=== PATIENT | male | born 1960 | race Caucasian/White ===

== ENCOUNTER 2019-12-05 17:34 | Outpatient (REF) | payer MEDICARE, MEDICAID, SELFPAY ==
[2019-12-05 22:29] LABS: Abs Immature Grans 0.03 k/cumm (0.0-0.09); Absolute Basophil Count 0.05 k/cumm (0.0-0.2); Absolute Eosinophil Count 0.33 k/cumm (0.0-0.7); Absolute Lymphocyte Count 2.51 k/cumm (1.2-3.4); Absolute Monocyte Count 0.67 k/cumm (0.11-0.7); Absolute Neutrophil Count 3.52 k/cumm (1.2-6.7); Basophils % 0.7; Eosinophils % 4.6; HGB 15.1 g/dL (13.5-17.5); Immature Grans % 0.4 %; Lymphocytes % 35.3; Mean Corp. HGB Concentration 32.8 g/dL (32.0-36.0); Mean Corpuscular Volume 85.2 fL (80-95); Mean Platelet Volume 11.2 fL (8.0-11.0); Monocytes % 9.4; Neutrophils % 49.6; Platelet Count 256 x1000/uL (130-400); RBC Distribution Width 16.1 % (11.8-14.1); White Blood Cell Count 7.11 k/cumm (4.4-10.8)
[2019-12-05 22:58] LABS: AST 6 U/L (15-37); Albumin 3.6 g/dL (3.4-5.0); Alkaline Phosphatase 69 U/L (46-116); Anion Gap 9.3 mmol/L (3-11); BUN 11 mg/dL (7-18); Bilirubin, Total 0.4 mg/dL (0.2-1.0); CO2 26.7 mmol/L (21.0-32.0); CREATININE 0.52 mg/dL (0.70-1.30); Calcium 9.3 mg/dL (8.5-10.1); Calculated LDL 64 mg/dL; Chloride 101 mmol/L (98-107); Cholesterol 122 mg/dL (<200); Glucose 112 mg/dL (74-106); HDL Cholesterol 24 mg/dL (40-60); Potassium 4.3 mmol/L (3.5-5.1); Sodium 137 mmol/L (136-145); Total Protein 7.5 g/dL (6.4-8.2); Triglyceride 171 mg/dL (<150); Vitamin B12 463 pg/mL (193-986)
[2019-12-05 23:00] LABS: ALT < 6 U/L (16-63)
[2019-12-05 23:28] LABS: Hemoglobin A1C 5.9 % (3.8-5.6)
== END 2019-12-05 17:54 ==
LOC: NCHCN 17:34
PROVIDERS: PCP Nurse Practitioner Family; Visit Provider Nurse Practitioner Family
DX: E11.9 Type 2 diabetes mellitus without complications (principal); F41.9 Anxiety disorder, unspecified; K75.81 Nonalcoholic steatohepatitis (NASH); K80.80 Other cholelithiasis without obstruction; E66.9 Obesity, unspecified; G80.0 Spastic quadriplegic cerebral palsy; J45.20 Mild intermittent asthma, uncomplicated; G47.33 Obstructive sleep apnea (adult) (pediatric)
CPT/HCPCS: 80053; 80061; 82607; 83036; 83735; 85025

== ENCOUNTER 2019-12-16 01:29 | Outpatient (CLI) | payer MEDICARE, MEDICAID, SELFPAY ==
--- NOTE | 2019-12-16 09:18 | DI.US_ITS ---
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 COMPARISON: No exams were available for comparison FINDINGS: The liver is normal in size and echogenicity. No focal liver lesions or biliary dilatation is seen. Gallbladder is unremarkable, without evidence of stones or wall thickening. Spleen is normal in siz e. The aorta is normal in diameter where visualized. The tail of the pancreas is obscured by bowel g as. The inferior pole of the right kidney and majority of the left kidney was obscured by bowel gas. There is no evidence of hydronephrosis. There are 3 stones visible at the upper pole of the right kidney measuring 7 and 10 millimeters in size. IMPRESSION: Limited exam due to bowel gas. Normal appearing liver, spleen and gallbladder. Right nephrolithia sis. The left kidney was not well seen.
== END 2019-12-16 01:49 ==
PROVIDERS: PCP Nurse Practitioner Family; Visit Provider Nurse Practitioner Family
DX: K75.81 Nonalcoholic steatohepatitis (NASH) (principal); N20.0 Calculus of kidney
CPT/HCPCS: 76700

== ENCOUNTER → 2020-01-23 08:57 | Outpatient (BNVA) | payer MEDICARE, MEDICAID, SELFPAY | PROVIDERS: PCP Nurse Practitioner Family; Referring Provider Nurse Practitioner Family; Visit Provider Psychiatry & Neurology Neurology | DX: G80.0 Spastic quadriplegic cerebral palsy (principal); K59.09 Other constipation; R32 Unspecified urinary incontinence; N32.81 Overactive bladder | CPT/HCPCS: 99204 ==

== ENCOUNTER → 2020-01-29 08:24 | Outpatient (BNVA) | payer MEDICARE, MEDICAID, SELFPAY | PROVIDERS: PCP Nurse Practitioner Family; Referring Provider Nurse Practitioner Family; Visit Provider Nurse Practitioner Gerontology | DX: R32 Unspecified urinary incontinence (principal); N32.81 Overactive bladder; E11.9 Type 2 diabetes mellitus without complications | CPT/HCPCS: 99204; 99215 ==

== ENCOUNTER → 2020-04-09 11:50 | Outpatient (BNVA) | payer MEDICARE, MEDICAID, SELFPAY | PROVIDERS: PCP Nurse Practitioner Family; Referring Provider Nurse Practitioner Family; Visit Provider Nurse Practitioner Gerontology | DX: N32.81 Overactive bladder (principal); N32.0 Bladder-neck obstruction | CPT/HCPCS: 99213; 99443 ==

== ENCOUNTER → 2020-07-07 11:14 | Outpatient (BNVA) | payer MEDICARE, MEDICAID, SELFPAY | PROVIDERS: PCP Nurse Practitioner Family; Referring Provider Nurse Practitioner Family; Visit Provider Nurse Practitioner Gerontology | DX: N32.0 Bladder-neck obstruction (principal); N32.81 Overactive bladder; E11.9 Type 2 diabetes mellitus without complications | CPT/HCPCS: 99213 ==

== ENCOUNTER 2020-09-02 17:10 | Outpatient (REF) | payer MEDICARE, MEDICAID, SELFPAY ==
[2020-09-05 20:29] LABS: Patient Race White; SARS-CoV-2 RNA Undetected (Undetected); SARS-CoV-2 Specimen Source Nasopharynx
== END 2020-09-02 17:30 ==
LOC: NCHCN 17:10
PROVIDERS: PCP Nurse Practitioner Family; Visit Provider Nurse Practitioner Family
DX: R05 Cough (principal)
CPT/HCPCS: U0003

== ENCOUNTER 2020-09-22 12:31 | Outpatient (CLI) | payer MEDICARE, MEDICAID, SELFPAY ==
--- NOTE | 2020-09-22 | DI.RAD_ITS ---
EXAM: XR CHEST 2V PA LATERAL CLINICAL HISTORY: COUGH, ? RECURRENT OR RESIDUAL PNEUMONIA TECHNIQUE: 2D digital imaging was performed. COMPARISON: CR,XR XR CHEST 2V PA LATERAL from 09/02/2020 FINDINGS: MEDIASTINUM: Normal. HEART: Normal. PULMONARY VASCULATURE: Normal. LUNGS: Right basilar atelectasis. No focal consolidating infiltrate. PLEURAL SPACE: No pleural effusion or pneumothorax. BONE:Within normal limits for the patient's age. OTHER FINDINGS:There is poor inspiration. IMPRESSION: Right basilar atelectasis. DATA REPOSITORY: RADIATION DOSE DELIVERED:
== END 2020-09-22 12:51 ==
PROVIDERS: PCP Nurse Practitioner Family; Visit Provider Nurse Practitioner Family
DX: J98.11 Atelectasis (principal)
CPT/HCPCS: 71046

== ENCOUNTER 2020-12-14 14:36 | Outpatient (REF) | payer MEDICARE, MEDICAID, SELFPAY ==
[2020-12-14 20:42] LABS: Abs Immature Grans 0.06 10^3/uL (0.0-0.06); Absolute Basophil Count 0.08 10^3/uL (0.0-0.2); Absolute Eosinophil Count 0.58 10^3/uL (0.0-0.7); Absolute Lymphocyte Count 2.61 10^3/uL (1.2-3.4); Absolute Monocyte Count 0.84 10^3/uL (0.1-0.8); Absolute Neutrophil Count 4.69 10^3/uL (1.2-6.7); Basophils % 0.9; Eosinophils % 6.5; HCT 44.9 % (40.0-50.0); HGB 14.8 g/dL (13.5-17.5); Immature Grans % 0.7; Lymphocytes % 29.5; MCH 27.8 pg (27.0-33.0); MCV 84.2 fL (80-95); MPV 10.4 fL (8.0-11.0); Monocytes % 9.5; Neutrophils % 52.9; Nucleated RBC 0 %; Platelet Count 262 10^3/uL (130-400); RBC 5.33 10^6/uL (4.36-5.78); RDW 15.5 % (11.8-14.1); RDW-SD 47.7 fL; WBC 8.86 10^3/uL (4.4-10.8)
[2020-12-14 21:20] LABS: ALT 23 U/L (16-63); AST 12 U/L (15-37); Albumin 3.6 g/dL (3.4-5.0); Alkaline Phosphatase 72 U/L (46-116); Anion Gap 8.3 mmol/L (3-11); BUN 14 mg/dL (7-18); Bilirubin, Total 0.4 mg/dL (0.2-1.0); CO2 25.7 mmol/L (21.0-32.0); CREATININE 0.55 mg/dL (0.70-1.30); Calcium 9.3 mg/dL (8.5-10.1); Chloride 101 mmol/L (98-107); Glucose 105 mg/dL (74-106); Potassium 4.2 mmol/L (3.5-5.1); Sodium 135 mmol/L (136-145); Total Protein 7.6 g/dL (6.4-8.2); Vitamin B12 439 pg/mL (193-986)
[2020-12-14 21:45] LABS: COMMENT (LAB VIEW ONLY) 50.23 mg/dL
[2020-12-14 21:46] LABS: Microalb ug/mg Crea 138.4 ug/mg Cr
[2020-12-15 10:17] LABS: Calculated LDL 65 mg/dL (<100); Cholesterol 137 mg/dL (<200); HDL Cholesterol 27 mg/dL (40-60); Triglyceride 228 mg/dL (<150)
== END 2020-12-14 14:56 ==
LOC: NCHCN 14:36
PROVIDERS: PCP Nurse Practitioner Family; Visit Provider Nurse Practitioner Family
DX: E11.9 Type 2 diabetes mellitus without complications (principal); R31.21 Asymptomatic microscopic hematuria; R13.10 Dysphagia, unspecified; G47.33 Obstructive sleep apnea (adult) (pediatric); G80.0 Spastic quadriplegic cerebral palsy; E66.9 Obesity, unspecified; Z87.01 Personal history of pneumonia (recurrent)
CPT/HCPCS: 80053; 80061; 82043; 82570; 82607; 83735; 85025; 87086

== ENCOUNTER 2020-12-18 15:28 | Outpatient (REF) | payer MEDICARE, MEDICAID, SELFPAY | END 2020-12-18 15:48 | LOC: NCHCN 15:28 | PROVIDERS: PCP Nurse Practitioner Family; Visit Provider Nurse Practitioner Family | DX: N39.0 Urinary tract infection, site not specified (principal); R32 Unspecified urinary incontinence; N32.81 Overactive bladder | CPT/HCPCS: 87077; 87086; 87186 ==

== ENCOUNTER 2020-12-25 19:10 | Outpatient (REF) | payer MEDICARE, MEDICAID, SELFPAY ==
[2020-12-25 20:42] LABS: Bilirubin Negative (Negative); Blood Small (Negative); Clarity Cloudy (Clear); Glucose Negative (Negative); Ketones Negative (Negative); Leukocyte Esterase Large (Negative); Nitrite Positive (Negative)
[2020-12-25 20:50] LABS: Bacteria Moderate HPF (Negative); C & S Indicated? C&S Done As Ordered; WBC >50 HPF (0-5)
== END 2020-12-25 19:11 | disposition home or self-care (01) ==
LOC: NCHCN 19:10
PROVIDERS: PCP Nurse Practitioner Family; Visit Provider Nurse Practitioner Family
DX: N39.0 Urinary tract infection, site not specified (principal)
CPT/HCPCS: 87077; 81003; 81015; 87086; 87186

== ENCOUNTER → 2020-12-30 10:31 | Outpatient (BNVA) | payer MEDICARE, MEDICAID, SELFPAY | PROVIDERS: PCP Nurse Practitioner Family; Referring Provider Nurse Practitioner Family; Visit Provider Nurse Practitioner Gerontology | DX: N20.0 Calculus of kidney (principal); G80.0 Spastic quadriplegic cerebral palsy; B96.1 Klebsiella pneumoniae [K. pneumoniae] as the cause of diseases classified elsewhere; R31.9 Hematuria, unspecified | CPT/HCPCS: 99215 ==

== ENCOUNTER 2021-01-04 01:41 | Outpatient (CLI) | payer MEDICARE, MEDICAID, SELFPAY ==
[2021-01-05 11:52] LABS: COVID-19 RT-PCR UVMMC Result Negative (Negative)
== END 2021-01-04 01:42 | disposition home or self-care (01) ==
LOC: LBO 01:41
PROVIDERS: PCP Nurse Practitioner Family; Visit Provider Family Medicine
DX: Z20.828 Contact with and (suspected) exposure to other viral communicable diseases (principal); Z01.818 Encounter for other preprocedural examination
CPT/HCPCS: U0003; U0005

== ENCOUNTER 2021-01-07 01:13 | Outpatient (CLI) | payer MEDICARE, MEDICAID, SELFPAY ==
--- NOTE | 2021-01-07 | DI.US_ITS ---
EXAM: US ABDOMEN CLINICAL HISTORY: NON ALCOHOLIC STEATOHEPATITIS, K75.81 TECHNIQUE: Ultrasound of complete upper abdomen performed using standard protocol. COMPARISON: US US ABDOMEN from 12/16/2019 FINDINGS: Study is somewhat limited due to patient's less than adequate ability to hold his breath and inabilit y to move-change positions adequately. There is no ascites evident. LIVER: There are no hepatic lesions evident nor obvious dilatation of intrahepatic ducts. GALLBLADDER/BILIARY: There are no gallstones. No gallbladder wall edema nor pericholecystic fluid. The common hepatic duct isnot dilated, measuring 3-4mm at the level of lynda hepatis. PANCREAS: There is no evidence of pancreatic mass nor dilatation of the pancreatic duct. SPLEEN: The spleen is not enlarged and there are no intrasplenic lesions evident. KIDNEYS:Kidneys exhibit normal size with no evidence of solid mass, calculus, nor hydronephrosis. No cortical cysts evident. ABDOMINAL AORTA: There is no evidence of abdominal aortic aneurysm. IVC: Normal diameter where visualized. IMPRESSION: 1. No evidence of cholelithiasis nor dilatation of the biliary tree. 2. No other significant ultrasound findings in the upper abdomen. 3. Previously described calculi in right kidney seen on the ultrasound of November 2019 are less evid ent on present images. There is no hydronephrosis on either side nor thinning of the cortical mantle . DATA REPOSITORY:
== END 2021-01-07 01:14 ==
LOC: DI 01:13
PROVIDERS: PCP Nurse Practitioner Family; Visit Provider Nurse Practitioner Family
DX: K75.81 Nonalcoholic steatohepatitis (NASH) (principal)
CPT/HCPCS: 76700

== ENCOUNTER → 2021-01-21 10:37 | Outpatient (BNVA) | payer MEDICARE, MEDICAID, SELFPAY | PROVIDERS: PCP Nurse Practitioner Family; Referring Provider Nurse Practitioner Family; Visit Provider Psychiatry & Neurology Neurology | DX: G80.0 Spastic quadriplegic cerebral palsy (principal); K59.09 Other constipation; R32 Unspecified urinary incontinence; N32.81 Overactive bladder; E11.9 Type 2 diabetes mellitus without complications | CPT/HCPCS: 99214 ==

== ENCOUNTER 2021-02-04 01:50 | Outpatient (CLI) | payer MEDICARE, MEDICAID, SELFPAY ==
[2021-02-04] MEDS: Omnipaque 350 MG/ML 100 ML BTL IJ (10:16)
[2021-02-04] MEDS: Normal Saline Flush 10 ML SYR IVP (10:17)
[2021-02-04] MEDS: Normal Saline - Diluent 50 ML VIAL IV (10:17)
--- NOTE | 2021-02-04 10:20 | DI.CT_ITS ---
EXAM: CT ABDOMEN PELVIS WO/W CLINICAL HISTORY: hx of stones,NEPHROLITHIASIS,N20.0. TECHNIQUE: Imaging Protocol: Axial computed tomography images with coronal and sagittal reformatted images were created and reviewed CONTRAST MATERIAL: Intravenous: Omnipaque 100cc Oral: None COMPARISON: No exams were available for comparison FINDINGS: VISUALIZED LUNG BASES: Moderate-sized right pleural effusion as well as some atelectasis and infiltra te in the right lung base. ABDOMEN: There is no ascites. LIVER: There are no obvious focal hepatic lesions evident . GALLBLADDER/BILIARY: There are layering gallstones or milk of calcium in the gallbladder lumen. No e vidence of acute cholecystitis. CBD is not dilated. PANCREAS: No evidence of pancreatic mass nor dilatation of the pancreatic duct. SPLEEN: Spleen is not enlarged. No obvious intrasplenic lesions. Splenic and portal veins are paten t. ADRENALS: There are no significant adrenal masses. KIDNEYS:Left kidney unremarkable. There is a fractured staghorn calculus in the right kidney which e xtends down into the renal pelvis. There is no associated hydronephrosis. The right ureter is not d ilated. There are no calculi in the lower right ureter nor in the urinary bladder.. ABDOMINAL AORTA: Abdominal aorta is not enlarged. LYMPH NODES:There is no retroperitineal nor paraaortic adenopathy. ABDOMINAL WALL/GI: There is a fat containing anterior abdominal hernia. No bowel obstruction. PELVIS: GI: No evidence of appendicitis.No evidence of sigmoid diverticulitis.Abundant fecal material in the colon. LYMPH NODES: There is no intrapelvic nor inguinal adenopathy. REPRODUCTIVE: Prostate size upper normal. URINARY BLADDER: Uniform thickening bladder wall without an obvious mass nor calculi nor diverticuli. OSSEOUS: Chronic pelvic and hip deformities in this contracted patient. There is also a displaced fr acture of the left femur noted on the scanogram No evidence of significant decubitus ulcer. No osteomyelitis evident. IMPRESSION: 1. There is a nonobstructive fractured staghorn calculus in the right kidney. No other significant r enal findings. No hydronephrosis nor hydroureter nor calculi in the urinary bladder. Opposite-left kidney appears unremarkable 2. Cholelithiasis or layering milk calcium in the gallbladder lumen. No evidence of acute cholecysti tis nor dilatation of the biliary tree. 3. Fat containing anterior abdominal wall umbilical hernia. This does not contain bowel loops. Ther e is no bowel obstruction. 4. Chronic pelvic and hip deformities and degenerative changes. There is also a fracture of the left femur noted on the scanogram. RADIATION DOSE DELIVERED: 4,096.03mGy.cm Total DLP DATA REPOSITORY: All CT scans at this facility are submitted to the National Radiology Data Registry (NRDR) Dose Index Registry (DIR) with the [employer] (ACR). RADIATION OPTIMIZATION: All CT scans at this facility use at least one of these dose optimization te chniques: automated exposure control; mA and/or kV adjustment per patient size (includes targeted exa ms where dose is matched to clinical indication); or iterative reconstruction.
== END 2021-02-04 02:10 ==
PROVIDERS: PCP Nurse Practitioner Family; Visit Provider Nurse Practitioner Gerontology
DX: N20.0 Calculus of kidney (principal); K42.9 Umbilical hernia without obstruction or gangrene; M95.5 Acquired deformity of pelvis
CPT/HCPCS: 74178; J3490

== ENCOUNTER → 2021-02-10 09:56 | Outpatient (BNVA) | payer MEDICARE, MEDICAID, SELFPAY | PROVIDERS: PCP Nurse Practitioner Family; Referring Provider Nurse Practitioner Family; Visit Provider Nurse Practitioner Gerontology | DX: N20.0 Calculus of kidney (principal) | CPT/HCPCS: 99215 ==

== ENCOUNTER 2021-03-26 09:00 | Outpatient (REF) | payer MEDICARE, MEDICAID, SELFPAY ==
[2021-03-26 13:06] LABS: Abs Immature Grans 0.04 10^3/uL (0.0-0.06); Absolute Basophil Count 0.08 10^3/uL (0.0-0.2); Absolute Eosinophil Count 0.26 10^3/uL (0.0-0.7); Absolute Lymphocyte Count 2.43 10^3/uL (1.2-3.4); Absolute Monocyte Count 0.54 10^3/uL (0.1-0.8); Absolute Neutrophil Count 4.15 10^3/uL (1.2-6.7); Basophils % 1.1; Eosinophils % 3.5; HCT 46.2 % (40.0-50.0); Immature Grans % 0.5; Lymphocytes % 32.4; MCH 26.6 pg (27.0-33.0); MCHC 32.5 % (32.0-36.0); MCV 81.9 fL (80-95); MPV 10.5 fL (8.0-11.0); Monocytes % 7.2; Neutrophils % 55.3; Nucleated RBC 0 %; Platelet Count 300 10^3/uL (130-400); RBC 5.64 10^6/uL (4.36-5.78); RDW 15.3 % (11.8-14.1); RDW-SD 45.9 fL
[2021-03-26 15:12] LABS: ALT 23 U/L (16-63); AST 13 U/L (15-37); Albumin 3.7 g/dL (3.4-5.0); Alkaline Phosphatase 72 U/L (46-116); Anion Gap 11.7 mmol/L (3-11); BUN 20 mg/dL (7-18); Bilirubin, Total 0.3 mg/dL (0.2-1.0); CO2 24.3 mmol/L (21.0-32.0); CREATININE 0.6 mg/dL (0.70-1.30); Calcium 9.3 mg/dL (8.5-10.1); Chloride 101 mmol/L (98-107); Glucose 172 mg/dL (74-106); Potassium 4.4 mmol/L (3.5-5.1); Sodium 137 mmol/L (136-145); Total Protein 8.1 g/dL (6.4-8.2)
== END 2021-03-26 10:41 ==
LOC: NCHCN 09:00
PROVIDERS: PCP Nurse Practitioner Family; Visit Provider Nurse Practitioner Family
DX: R31.21 Asymptomatic microscopic hematuria (principal); R32 Unspecified urinary incontinence; N20.0 Calculus of kidney
CPT/HCPCS: 80053; 87077; 85025; 87086; 87186

== ENCOUNTER 2021-03-30 02:58 | Outpatient (CLI) | payer MEDICARE, MEDICAID, SELFPAY ==
[2021-03-30 10:19] LABS: Source Nasal/Nares
[2021-03-30 16:16] LABS: COVID-19 PCR Negative (Negative)
== END 2021-03-30 02:59 | disposition home or self-care (01) ==
LOC: LBO 02:58
PROVIDERS: PCP Nurse Practitioner Family; Visit Provider Urology
DX: Z20.822 Contact with and (suspected) exposure to COVID-19 (principal); Z01.818 Encounter for other preprocedural examination
CPT/HCPCS: 87635

== ENCOUNTER 2021-04-09 20:40 | Inpatient (IN) | payer MEDICARE, MEDICAID, SELFPAY ==
[2021-04-09] VITALS (16 sets, daily range): BP systolic 133–137; BP diastolic 72–83; PULSE 80–89; RESP 22–39; TEMP 37.2; O2SAT 92–96
[2021-04-09] MEDS: EPINEPHrine 0.3 MG KIT IM (20:59)
[2021-04-09] MEDS: diphenhydrAMINE 50 MG/ML VIAL IM (20:59)
--- NOTE | 2021-04-09 21:00 | RT.EKG_ITS ---
APPROVED REPORT Exam: Resting ECG Reason for Exam: SOB Patient Location: E HR:85 bpm ECG Measurements Heart Rate 85 AXIS HI 195 P 12 QRSd 98 QRS -37 QT 387 T -7 QTc 460 Conclusion Sinus rhythm...normal P axis, V-rate 60- 99 Inferior infarct, old...Q >35mS, II III aVF Q >30mS in V2-V5
[2021-04-09] MEDS: methylPREDNISolone SUCC 125 MG VIAL IVP (21:30)
[2021-04-09 21:36] LABS: Lactate 1.2 mmol/L (0.6-1.4)
[2021-04-09 21:39] LABS: Abs Immature Grans 0.59 10^3/uL (0.0-0.06); Absolute Basophil Count 0.05 10^3/uL (0.0-0.2); Absolute Eosinophil Count 0.36 10^3/uL (0.0-0.7); Basophils % 0.3; Eosinophils % 2.2; HCT 39.5 % (40.0-50.0); HGB 13.2 g/dL (13.5-17.5); Immature Grans % 3.6; Lymphocytes % 17.9; MCH 26.9 pg (27.0-33.0); MCHC 33.4 % (32.0-36.0); MCV 80.4 fL (80-95); MPV 9.4 fL (8.0-11.0); Monocytes % 7.7; Neutrophils % 68.3; Nucleated RBC 0 %; Platelet Count 296 10^3/uL (130-400); RBC 4.91 10^6/uL (4.36-5.78); RDW 15.5 % (11.8-14.1); RDW-SD 44.9 fL
[2021-04-09 21:51] LABS: Absolute Lymphocyte Count 2.92 10^3/uL (1.2-3.4); Absolute Monocyte Count 1.26 10^3/uL (0.1-0.8); Absolute Neutrophil Count 11.13 10^3/uL (1.2-6.7)
[2021-04-09 21:52] LABS: ALT 33 U/L (16-63); AST 20 U/L (15-37); Alkaline Phosphatase 95 U/L (46-116); Anion Gap 11.5 mmol/L (3-11); BUN 12 mg/dL (7-18); Bilirubin, Total 0.6 mg/dL (0.2-1.0); CO2 24.5 mmol/L (21.0-32.0); CREATININE 0.7 mg/dL (0.70-1.30); Calcium 8.9 mg/dL (8.5-10.1); Chloride 97 mmol/L (98-107); Diff Comment Diff Reviewed; Glucose 185 mg/dL (74-106); Potassium 4.3 mmol/L (3.5-5.1); Sodium 133 mmol/L (136-145); Total Protein 8.2 g/dL (6.4-8.2)
[2021-04-09 21:53] LABS: Microcytosis 1+
[2021-04-09 22:07] LABS: Source Nasal/Nares
--- NOTE | 2021-04-09 22:31 | DI.RAD_ITS ---
Exam(s) XR PORTABLE CHEST AP EXAM: XR PORTABLE CHEST AP CLINICAL HISTORY: pui cough TECHNIQUE: COMPARISON: CR XR CHEST 2V PA LATERAL from 09/22/2020 FINDINGS: There is a poor inspiration. Heart may be mildly enlarged. Lungs are grossly clear and well expande d. No evidence of acute consolidation. No pleural effusion seen on this frontal film. IMPRESSION: Negative examination of the chest. Poor inspiration. RADIATION DOSE DELIVERED: Total DLP
[2021-04-09] MEDS: Albuterol 2.5 MG/3 ML INH SOLN VIAL UPD (23:00)
--- NOTE | 2021-04-09 23:00 | W.ED.GENAD ---
Discharge Plan Disposition Patient Disposition: [facility] INPATIENT Condition: Serious Discharge Details Clinical Impression: Fever, Allergic reaction caused by a drug Primary Care Provider: Starr Llamas ED Provider: Lucas Randall [place] Meds and New Rx's Prescriptions: No Action carbamide peroxide [Debrox] 6.5 % drops 5 drp otic (ear) DAILY PRNRF: 0 [employer] Thick-It Powder PO PRNRF: 0 fluticasone propionate 50 mcg/actuation spray,suspension 2 spray intranasal DAILY RF: 0 Toviaz 4 mg tablet extended release 24 hr 4 mg PO DAILY RF: 0 polyethylene glycol 3350 17 gram/dose powder 17 gm PO DAILY RF: 0 aspirin [Adult Low Dose Aspirin] 81 mg tablet,delayed release (DR/EC) 81 mg PO DAILY RF: 0 Ocuvite Adult 50 Plus 250-5-1 mg capsule 1 cap PO DAILY RF: 0 cholecalciferol (vitamin D3) 25 mcg (1,000 unit) tablet 25 mcg PO DAILY RF: 0 omeprazole 20 mg capsule,delayed release(DR/EC) 20 mg PO DAILY RF: 0 tamsulosin 0.4 mg capsule 0.4 mg PO BID RF: 0 metformin 500 mg tablet extended release 24 hr 500 mg PO DAILY RF: 0 Medical Decision Making <Ángel Jones MD - Last Filed: 04/10/21 00:44> 2100 --patient seen immediately on arrival. 61-year-old male with multiple medical problems including history of cerebral palsy, spastic quadriplegia, kidney stones status post recent stent removal earlier today, developed rash, nausea and vomiting after a single dose of ciprofloxacin that was given prestent removal early this afternoon. Patient has full body urticarial rash and is tachypneic with wheezing. I am concerned that he has anaphylactic reaction to the fluoroquinolone. Epinephrine 0.3 mg IM and Benadryl 50 mg IM was administered while IV access was being obtained. Solu-Medrol 125 mg was administered IV. 2310 -- Upon reassessment, rash had significantly improved and on subsequent reassessment resolved. He does continue to have tachypnea. I worry about potential aspiration given vomiting episode earlier. I will give a albuterol neb and plan to reassess. Chest x-ray was reviewed and interpreted by me: Question right perihilar opacity. Awaiting radiology interpretation. --Chest x-ray interpreted by radiology: Hypoventilatory changes, perihilar vascular crowding and a diffuse increase in pulmonary parenchymal density. No focal consolidation or pulmonary edema. Plan will be to proceed to CT of the chest abdomen pelvis to assess for source of fever including postoperative complication versus aspiration pneumonia not appreciated on chest x-ray. Lab Data Lab results reviewed: Yes I reviewed the patient's lab results. Labs: 04/10/21 00:10 Blood Blood Culture - Pending 04/10/21 00:10 Blood Blood Culture - Pending Laboratory Tests Range/Units 04/09/21 04/09/21 04/09/21 21:30 21:30 21:30 WBC (4.4-10.8) 10^3/uL 16.30 H RBC (4.36-5.78) 10^6/uL 4.91 Hgb (13.5-17.5) g/dL 13.2 L Hct (40.0-50.0) % 39.5 L MCV (80-95) fL 80.4 MCH (27.0-33.0) pg 26.9 L MCHC (32.0-36.0) % 33.4 RDW (11.8-14.1) % 15.5 H Plt Count (130-400) 10^3/uL 296 MPV (8.0-11.0) fL 9.4 Immature Gran % 3.6 Neutrophils % 68.3 Lymphocytes % 17.9 Monocytes % 7.7 Eosinophils % 2.2 Basophils % 0.3 Nucleated RBC % % 0 Absolute Neutrophils (1.2-6.7) 10^3/uL 11.13 H Absolute Lymphocytes (1.2-3.4) 10^3/uL 2.92 Absolute Monocytes (0.1-0.8) 10^3/uL 1.26 H Absolute Eosinophils (0.0-0.7) 10^3/uL 0.36 Absolute Basophils (0.0-0.2) 10^3/uL 0.05 RBC Morphology See below Microcytosis 1+ VBG Lactate (0.6-1.4) mmol/L 1.2 Sodium (136-145) mmol/L 133 L Potassium (3.5-5.1) mmol/L 4.3 Chloride (98-107) mmol/L 97 L Carbon Dioxide (21.0-32.0) mmol/L 24.5 Anion Gap (3-11) mmol/L 11.5 H BUN (7-18) mg/dL 12 Creatinine (0.70-1.30) mg/dL 0.7 Estimated GFR/1.73 m2 (mL/min/1.73m2) >= 60.00 Glucose (74-106) mg/dL 185 H Calcium (8.5-10.1) mg/dL 8.9 Total Bilirubin (0.2-1.0) mg/dL 0.6 AST (15-37) U/L 20 ALT (16-63) U/L 33 Alkaline Phosphatase (46-116) U/L 95 Total Protein (6.4-8.2) g/dL 8.2 Albumin (3.4-5.0) g/dL 3.0 L COVID-19 Source SARS-CoV-2 (PCR) (Negative) Range/Units 04/09/21 22:04 WBC (4.4-10.8) 10^3/uL RBC (4.36-5.78) 10^6/uL Hgb (13.5-17.5) g/dL Hct (40.0-50.0) % MCV (80-95) fL MCH (27.0-33.0) pg MCHC (32.0-36.0) % RDW (11.8-14.1) % Plt Count (130-400) 10^3/uL MPV (8.0-11.0) fL Immature Gran % Neutrophils % Lymphocytes % Monocytes % Eosinophils % Basophils % Nucleated RBC % % Absolute Neutrophils (1.2-6.7) 10^3/uL Absolute Lymphocytes (1.2-3.4) 10^3/uL Absolute Monocytes (0.1-0.8) 10^3/uL Absolute Eosinophils (0.0-0.7) 10^3/uL Absolute Basophils (0.0-0.2) 10^3/uL RBC Morphology Microcytosis VBG Lactate (0.6-1.4) mmol/L Sodium (136-145) mmol/L Potassium (3.5-5.1) mmol/L Chloride (98-107) mmol/L Carbon Dioxide (21.0-32.0) mmol/L Anion Gap (3-11) mmol/L BUN (7-18) mg/dL Creatinine (0.70-1.30) mg/dL Estimated GFR/1.73 m2 (mL/min/1.73m2) Glucose (74-106) mg/dL Calcium (8.5-10.1) mg/dL Total Bilirubin (0.2-1.0) mg/dL AST (15-37) U/L ALT (16-63) U/L Alkaline Phosphatase (46-116) U/L Total Protein (6.4-8.2) g/dL Albumin (3.4-5.0) g/dL COVID-19 Source Nasal/nares SARS-CoV-2 (PCR) (Negative) Negative <Lucas Randall MD - Last Filed: 04/10/21 02:37> Patient signed out to me pending repeat lactic acid, CT chest/abd/pelvis and obtaining [facility] records. Patient repeat lactic continues to be normal. Vitals are stable. [facility] records indicate patient admitted there on the and had right ureteral stent as well as right nephrostomy tube placed in order to remove staghorn calculus. He did have a couple episodes of fever and hypotension treated with fluids and Meropenem due to previous resistant bacteria on urine culture. ID was involved. By the , the nephrostomy tube and Kovacs were out and patient discharged home without antibiotic and did well. Went back to [facility] today and had stent removed. Receive dose of Cipro preprocedure. Upon returning to [facility] this afternoon, patient developed fever, hives, difficulty breathing. He was brought in by ambulance. Please see Dr. Jones's note for initial management. Patient has been stable since I have taken over care. He has not been febrile. Still occasionally tachypnic and still on [place] oxygen but breathing better. CT scan shows slight consolidation of the right posterior lung base, question atelectesis versus infection. Abd/pelvic CT negative except for post op changes, residual small stones in ureter without obstruction and stranding/edema of right kidney consistent with pyelo. Based on discussion with Dr. Jones at sign out, plan was to admit here overnight if no significant pathology on CT. Case discussed with hospitalist. Will admit to tele overnight and continue to monitor for recurrent allergic symptoms. Probably treat with prednisone for a few days and Benadryl prn. Will also dose with Meropenem after urine culture obtain and have day hospitalist follow up with [facility] urology for recommendations regarding further treatment or not. Patient has customer care representative with him from [employer]. No advance directive on file that they are aware of but there is a guardian. For now admit as full code and will need to clarify with guardian in the morning. Medical Records Medical records reviewed: Yes I reviewed the patient's medical records. Medical records narrative: Reviewed [facility] records for surgery and admission last week Lab Data Lab results reviewed: Yes I reviewed the patient's lab results. Lab results narrative: Elevated WBC but normal lactate x2 HPI <Ángel Jones MD - Last Filed: 04/10/21 00:44> General Mode of arrival: EMS. Date/Time Provider Initiated Documentation: 04/09/21 20:50. Limitations to Documentation: no limitations. Information obtained by: patient and EMS. HPI Narrative: 61-year-old male with history of cerebral palsy with spastic quadriplegia, nephrolithiasis status post recent stent removal performed earlier today, received ciprofloxacin single dose around noon, presents tonight with EMS with fever and difficulty breathing. Per the patient's cable television line technician, he developed rash on his arms bilaterally early this afternoon. Rash progressed and worsened involves full body. Rash is red. He also had nausea and vomited. Check Out Cashier notes that he may have aspirated as he has aspirated in the past. He was then noted to have a fever later this evening. Fever was as high as 104 at home. EMS also did note fever. EMS states that patient developed some cough and was having some difficulty breathing in route. Of note, patient does not have any known allergy to ciprofloxacin. Related Data Home Medications Medication Instructions Recorded Confirmed aspirin 81 mg tablet,delayed 81 mg PO DAILY 12/12/19 02/10/21 release cholecalciferol (vitamin D3) 25 25 mcg PO DAILY 12/12/19 02/10/21 mcg (1,000 unit) tablet omeprazole 20 mg capsule,delayed 20 mg PO DAILY 12/12/19 02/10/21 release polyethylene glycol 3350 17 17 gm PO DAILY 12/12/19 02/10/21 gram/dose oral powder tamsulosin 0.4 mg capsule 0.4 mg PO BID cap 12/12/19 02/10/21 vit C,E,zinc,copper-[id number] 250 1 cap PO DAILY 12/12/19 02/10/21 mg-lutein 5 mg-zeaxanthin 1 mg capsule fesoterodine 4 mg tablet,extended 4 mg PO DAILY 04/09/20 02/10/21 release 24 hr carbamide peroxide 6.5 % ear drops 5 drp OTIC (EAR) DAILY PRN 01/21/21 02/10/21 fluticasone propionate 50 2 spray INTRANASAL DAILY 01/21/21 02/10/21 mcg/actuation nasal spray,suspension metformin 500 mg tablet,extended 500 mg PO DAILY tab 01/21/21 02/10/21 release 24 hr starch (thickening) pwd PO PRN 01/21/21 02/10/21 Allergies Allergy/AdvReac Type Severity Reaction Status Date / Time ciprofloxacin Allergy Severe Wheezing Unverified 04/10/21 00:17 wool Allergy Unverified 01/21/21 10:42 kapok Allergy Uncoded 01/21/21 10:42 General Stated Complaint: Fever URSULA: 2 Review of Systems <Ángel Jones MD - Last Filed: 04/10/21 00:44> All systems reviewed & are unremarkable except as noted in HPI and below Constitutional Constitutional: Reports fever(s) Respiratory Respiratory: Reports cough Gastrointestinal Gastrointestinal: Reports as per HPI and Denies abdominal pain Integumentary/Breasts Skin/Breast: Reports as per HPI PFSH <Ángel Jones MD - Last Filed: 04/10/21 00:44> Medical History Anxiety BPH (benign prostatic hyperplasia) Cholelithiasis without obstruction Chronic constipation Colpocephaly CP (cerebral palsy), spastic, quadriplegic Diabetes Diverticular disease Exotropia GERD (gastroesophageal reflux disease) Hip subluxation Intellectual disability Kidney papillary necrosis Left inguinal hernia TAPIA (nonalcoholic steatohepatitis) Nephrolithiasis OAB (overactive bladder) Obesity Obstructive sleep apnea Optic atrophy Osteoporosis Recurrent UTI Umbilical hernia Urinary incontinence Surgical History No significant past surgical history Family History Father , PNA No problems noted. Mother , SMOKING No problems noted. Brother , MVA No problems noted. Sister Substance abuse Social History Smoking/Tobacco Use Status: Never Smoking risk assessment performed?: Yes Alcohol Intake: never Drug use: Never Household members: other Housing: assisted living facility current occupation: Disabled Additional Social history: Lives at [facility] since Oct 2019. Guardian Mouna Landis since . Exam <Ángel Jones MD - Last Filed: 04/10/21 00:44> Const General: cooperative HENMT Mouth: moist mucous membranes Eyes Conjunctivae: normal conjunctivae Sclera: normal sclerae Neck Neck: trachea midline and supple Resp Effort & Inspection: audible wheezes and tachypneic Auscultation: no rales and no rhonchi Cardio Rate: regular rate and not tachycardic Rhythm: regular rhythm GI Inspection: abdominal wall ecchymosis Palpation: soft, firm in the LLQ, no guarding, no masses, not rigid and tender (lower abd) Skin Rashes: rashes noted (Urticaria full body) Neuro General: patient alert, patient awake and patient oriented x3 Extrem General: no edema Psych Appearance: grossly normal Mental Status: mental status grossly normal Course <Ángel Jones MD - Last Filed: 04/10/21 00:44> Vital Signs Vital signs: Vital Signs Temperature 37.2 C 04/09/21 20:40 Pulse 89 04/09/21 20:40 Respiratory Rate 39 H 04/09/21 20:40 Blood Pressure 133/83 04/09/21 20:40 Pulse Oximetry 95 04/09/21 20:40 Temperature 37.2 C 04/09/21 20:40 Temperature Source Temporal Artery Scan 04/09/21 20:40 Pulse 89 04/09/21 20:40 Pulse 84 04/09/21 22:40 Respiratory Rate 33 H 04/09/21 22:40 Respiratory Effort Accessory Muscle Use 04/09/21 22:35 Blood Pressure 133/83 04/09/21 20:40 Blood Pressure Position Sitting 04/09/21 20:40 Pulse Oximetry 94 04/09/21 22:40 Oxygen Delivery Method Nasal Cannula 04/09/21 21:30 Oxygen Flow Rate 0 04/09/21 20:40 Pain Level 0 04/09/21 20:40 Lab/Test Results Lab/Test Results: Laboratory Tests Range/Units 04/09/21 04/09/21 04/09/21 21:30 21:30 21:30 WBC (4.4-10.8) 10^3/uL 16.30 H RBC (4.36-5.78) 10^6/uL 4.91 Hgb (13.5-17.5) g/dL 13.2 L Hct (40.0-50.0) % 39.5 L MCV (80-95) fL 80.4 MCH (27.0-33.0) pg 26.9 L MCHC (32.0-36.0) % 33.4 RDW (11.8-14.1) % 15.5 H Plt Count (130-400) 10^3/uL 296 MPV (8.0-11.0) fL 9.4 Immature Gran % 3.6 Neutrophils % 68.3 Lymphocytes % 17.9 Monocytes % 7.7 Eosinophils % 2.2 Basophils % 0.3 Nucleated RBC % % 0 Absolute Neutrophils (1.2-6.7) 10^3/uL 11.13 H Absolute Lymphocytes (1.2-3.4) 10^3/uL 2.92 Absolute Monocytes (0.1-0.8) 10^3/uL 1.26 H Absolute Eosinophils (0.0-0.7) 10^3/uL 0.36 Absolute Basophils (0.0-0.2) 10^3/uL 0.05 RBC Morphology See below Microcytosis 1+ VBG Lactate (0.6-1.4) mmol/L 1.2 Sodium (136-145) mmol/L 133 L Potassium (3.5-5.1) mmol/L 4.3 Chloride (98-107) mmol/L 97 L Carbon Dioxide (21.0-32.0) mmol/L 24.5 Anion Gap (3-11) mmol/L 11.5 H BUN (7-18) mg/dL 12 Creatinine (0.70-1.30) mg/dL 0.7 Estimated GFR/1.73 m2 (mL/min/1.73m2) >= 60.00 Glucose (74-106) mg/dL 185 H Calcium (8.5-10.1) mg/dL 8.9 Total Bilirubin (0.2-1.0) mg/dL 0.6 AST (15-37) U/L 20 ALT (16-63) U/L 33 Alkaline Phosphatase (46-116) U/L 95 Total Protein (6.4-8.2) g/dL 8.2 Albumin (3.4-5.0) g/dL 3.0 L COVID-19 Source Range/Units 04/09/ 22:04 WBC (4.4-10.8) 10^3/uL RBC (4.36-5.78) 10^6/uL Hgb (13.5-17.5) g/dL Hct (40.0-50.0) % MCV (80-95) fL MCH (27.0-33.0) pg MCHC (32.0-36.0) % RDW (11.8-14.1) % Plt Count (130-400) 10^3/uL MPV (8.0-11.0) fL Immature Gran % Neutrophils % Lymphocytes % Monocytes % Eosinophils % Basophils % Nucleated RBC % % Absolute Neutrophils (1.2-6.7) 10^3/uL Absolute Lymphocytes (1.2-3.4) 10^3/uL Absolute Monocytes (0.1-0.8) 10^3/uL Absolute Eosinophils (0.0-0.7) 10^3/uL Absolute Basophils (0.0-0.2) 10^3/uL RBC Morphology Microcytosis VBG Lactate (0.6-1.4) mmol/L Sodium (136-145) mmol/L Potassium (3.5-5.1) mmol/L Chloride (98-107) mmol/L Carbon Dioxide (21.0-32.0) mmol/L Anion Gap (3-11) mmol/L BUN (7-18) mg/dL Creatinine (0.70-1.30) mg/dL Estimated GFR/1.73 m2 (mL/min/1.73m2) Glucose (74-106) mg/dL Calcium (8.5-10.1) mg/dL Total Bilirubin (0.2-1.0) mg/dL AST (15-37) U/L ALT (16-63) U/L Alkaline Phosphatase (46-116) U/L Total Protein (6.4-8.2) g/dL Albumin (3.4-5.0) g/dL COVID-19 Source Nasal/nares Critical Care Time <Ángel Jones MD - Last Filed: 04/10/21 00:44> Critical Care Time Critical Care Time: Yes Total Critical Care Time: 45 Attestation: I spent greater than minutes addressing this patient's immediate life threats. Please see MDM section of note. This time was spent engaged in work directly related to the patient's care, exclusive of separate procedures, and failure to initiate these interventions would have likely resulted in clinically significant or life threatening deterioration in the patient's condition. Sign Out <Ángel Jones MD - Last Filed: 04/10/21 00:44> Sign Out Data: Sign Out Comment: Follow-up CT of the chest and abdomen pelvis and reassess for discharge Last updated by Ángel Jones MD at 04/10/21 00:21
--- NOTE | 2021-04-09 23:20 | DI.VRAD_ITS ---
PROCEDURE INFORMATION: Exam: XR Chest Exam date and time: 04/09/2021 10:35 PM Age: 61 years old Clinical indication: Cough TECHNIQUE: Imaging protocol: XR of the chest. Views: 1 view. COMPARISON: CR XR CHEST 2V PA LATERAL 09/22/2020 1:16 PM FINDINGS: Lungs: There is poor ventilation of the lungs, with perihilar vascular crowding and a diffuse increase in pulmonary parenchymal density. No focal consolidation or pulmonary edema. There is mild basilar atelectasis. Pleural spaces: No pleural effusion. No pneumothorax. Heart/Mediastinum: Cardiomediastinal contours within normal limits. Bones/joints: No acute osseous finding. IMPRESSION: 1. Hypoventilatory changes as discussed. 2. No focal airspace consolidation. Dictated and Authenticated by: Hugo Shultz MD. Ordering:JAMEY Neal MD
[2021-04-09 23:45] LABS: COVID-19 PCR Negative (Negative)
[2021-04-10] VITALS (28 sets, daily range): BP systolic 98–139; BP diastolic 59–80; PULSE 66–87; RESP 17–30; TEMP 35.9–37.2; O2SAT 92–95
[2021-04-10] MEDS: Lactated Ringers 500 ML 1000 ML IV (00:32)
[2021-04-10 00:34] LABS: Lactate 0.7 mmol/L (0.6-1.4)
--- NOTE | 2021-04-10 01:06 | DI.CT_ITS ---
Exam(s) CT CHEST/ABD/PEL W EXAM: CT CHEST/ABD/PEL W TECHNIQUE: CT examination of the chest, abdomen, and pelvis was performed with bolus infusion of 100 cc of Omnipaque 350. COMPARISON: CT CT ABDOMEN PELVIS WO/W from 02/04/2021 FINDINGS: There is no evidence of a thoracic aortic aneurysm or dissection. There is no evidence of pulmonary embolic disease.. The lungs are predominantly clear with trace right basilar atelectasis or consoli dation associated with a small right pleural effusion period. No pneumothorax or left pleural effusi on. No mediastinal hematoma. No adenopathy in the chest. Tracheobronchial tree appears intact. The liver, spleen, and pancreas appear normal. Gallbladder sludge or cholelithiasis noted. No gross biliary dilatation. The adrenals are unremarkable in appearance. Left kidney appears normal with no evidence of hydronep hrosis, nephrolithiasis, or ureterolithiasis. The patient has reportedly had a prior right renal liudmila nt and there is small amount of fluid seen along presumed stent track, nonspecific. Right kidney reyna ears enlarged compared to the left and contains areas of hypoenhancement in the cortex, the findings are concerning for infectious process. Ureter is mildly dilated to the level of the ureterovesical j unction, this may reflect prior stent placement, low-grade obstruction at the distal left ureter is n ot excluded. There is no gross hydronephrosis. Mild wall thickening of the urinary bladder noted, n onspecific.. No significant abdominal or pelvic vascular abnormality period. No abdominal or pelvic adenopathy. Fat containing umbilical hernia noted. No evidence of bowel obstruction. Severe degenerative changes of both hips noted. IMPRESSION: Findings concerning for pyelonephritis or focal vascular compromise in the right kidney, patient repo rtedly had a prior right renal stent. Please see above discussion. RADIATION DOSE DELIVERED: 1,587.6mGy.cm Total DLP 1,587.6mGy.cm Total DLP DATA REPOSITORY: All CT scans at this facility are submitted to the National Radiology Data Registry (NRDR) Dose Index Registry (DIR) with the [employer] ([employer]). RADIATION OPTIMIZATION: All CT scans at this facility use at least one of these dose optimization te chniques: automated exposure control; mA and/or kV adjustment per patient size (includes targeted exa ms where dose is matched to clinical indication); or iterative reconstruction.
[2021-04-10] MEDS: Normal Saline Flush 10 ML SYR IVP ×2 (01:19→04:39)
[2021-04-10] MEDS: Omnipaque 350 MG/ML 100 ML BTL IJ (01:20)
[2021-04-10] MEDS: Normal Saline - Diluent 50 ML VIAL IV (01:21)
--- NOTE | 2021-04-10 01:42 | DI.VRAD_ITS ---
PROCEDURE INFORMATION: Exam: CT Chest With Contrast; Diagnostic Exam date and time: 04/10/2021 12:14 AM Age: 61 years old Clinical indication: Fever; Cough; Prior surgery; Surgery date: <1 month; Surgery type: Renal stent placement 04/01/21 TECHNIQUE: Imaging protocol: Diagnostic computed tomography of the chest with contrast. 3D rendering (Not supervised by radiologist): MIP and/or 3D reconstructed images were created by the technologist. Radiation optimization: All CT scans at this facility use at least one of these dose optimization techniques: automated exposure control; mA and/or kV adjustment per patient size (includes targeted exams where dose is matched to clinical indication); or iterative reconstruction. Contrast material: [id number]; Contrast volume: 100 ml; Contrast route: INTRAVENOUS (IV); COMPARISON: 1. CR XR PORTABLE CHEST AP 04/09/2021 10:[address] ABDOMEN PELVIS WO/W 02/04/2021 9:44:41 AM FINDINGS: Thyroid: No mass. Lungs: Mild subpleural consolidation within the posterior right lung base. Also noted is mild subpleural atelectasis within the posterior left lung base. Otherwise no pulmonary consolidation or mass. Pleural spaces: There is trace right pleural effusion, this is significantly decreased compared to study dated 02/04/2021. No left pleural effusion. No pneumothorax. Heart: Unremarkable. No cardiomegaly. No pericardial effusion. Aorta: Unremarkable. No aortic aneurysm or dissection. Lymph nodes: Unremarkable. No enlarged lymph nodes. Bones/joints: There is mild scoliotic curvature of the thoracolumbar spine. No acute fracture. There are multilevel anterior flowing bridging marginal osteophytes within the mid to lower thoracic spine. Soft tissues: Unremarkable. IMPRESSION: Mild subpleural consolidation within the posterior right lung base may represent compressive atelectasis related to trace right pleural effusion, however superimposed infection is not excluded in the appropriate clinical setting. There has been significant interval reduction in size of trace right pleural effusion compared to study dated 02/04/2021. PROCEDURE INFORMATION: Exam: CT Abdomen And Pelvis With Contrast Exam date and time: 04/10/2021 12:14 AM Age: 61 years old Clinical indication: Fever; Cough; Prior surgery; Surgery date: <1 month; Surgery type: Renal stent placement 04/01/21 TECHNIQUE: Imaging protocol: Computed tomography of the abdomen and pelvis with contrast. 3D rendering (Not supervised by radiologist): MIP and/or 3D reconstructed images were created by the technologist. Radiation optimization: All CT scans at this facility use at least one of these dose optimization techniques: automated exposure control; mA and/or kV adjustment per patient size (includes targeted exams where dose is matched to clinical indication); or iterative reconstruction. Contrast material: [id number]; Contrast volume: 100 ml; Contrast route: INTRAVENOUS (IV); COMPARISON: 1. CR XR PORTABLE CHEST AP 04/09/2021 10:[address] ABDOMEN PELVIS WO/W 02/04/2021 9:44:41 AM FINDINGS: Lungs: Lung bases are clear. Liver: Unremarkable. No mass. Gallbladder and bile ducts: There is layering hyperattenuation within the gallbladder suggestive for sludge versus microlithiasis. No pericholecystic inflammatory stranding or gallbladder wall thickening. No biliary dilation. Pancreas: Unremarkable. No ductal dilation. Spleen: Unremarkable. No splenomegaly. Adrenal glands: Normal. No mass. Kidneys and ureters: There is irregular asymmetric hypoenhancement of the mid right kidney with associated perinephric stranding. There is overlying trace curvilinear fluid collection with suggestion of thin peripheral wall measuring 2.4 cm by 0.8 cm (series 4, image 62) by 2.0 cm craniocaudad (sagittal image 107) with suggestion of adjacent overlying linear tract suggestive for prior percutaneous nephrostomy tube.. There is small nonobstructive 4 mm nephrolith within the right renal collecting system. No hydronephrosis. There is asymmetric prominence of the right ureter which is mildly dilated diffusely without obstructive lesion identified. There is punctate 1 mm calcification within the distal right ureter dependently, however nonobstructive. Stomach and bowel: No focal colonic mural thickening or significant pericolonic inflammatory stranding. There is mild to moderate colonic stool burden, correlate for constipation. No focal abnormality of the small bowel. No bowel obstruction. Appendix: No evidence of acute appendicitis. Intraperitoneal space: No free air. No significant fluid collection. Vasculature: Within normal limits. No abdominal aortic aneurysm or dissection. Lymph nodes: No pathologically enlarged lymph nodes. Urinary bladder: Mild diffuse bladder wall thickening. Reproductive: Prostate gland is mildly enlarged. Bones/joints: Severe degenerative changes of the bilateral hips. Also noted are chronic changes of the bilateral hemipelvis ease. There is partial ankylosis of the sacroiliac joints. There is mild scoliotic curvature of the thoracolumbar spine with scattered partial ankylosis of the posterior elements of the lumbar spine. No acute fracture. Soft tissues: There is trace fat in the left inguinal canal. There is small fat containing umbilical hernia. IMPRESSION: 1. Asymmetric irregular hypoenhancement of the right renal midpole with overlying perinephric stranding concerning for infectious/inflammatory process such as pyelonephritis. Correlate clinically. 2. Small curvilinear fluid collection with suggestion of thin peripheral wall measuring 2.4 cm x 0.8 cm x 2.0 cm overlying area of irregular right kidney hypoenhancement with suggestion of associated thin tract, suspect related to prior percutaneous nephrostomy tube. Correlate clinically for seroma/hematoma versus perirenal microabscess. 3. Mild diffuse dilation of the right ureter without discrete obstructive lesion. Possibly related to prior stent versus recently passed stone versus acute infectious/inflammatory process. Correlate clinically. 4. There is punctate 1 mm calcification within the distal right ureter dependently, however this is not obstructive. 5. Mild diffuse bladder wall thickening. May be related to incomplete distension versus cystitis versus chronic bladder outlet obstruction. Correlate clinically. 6. Gallbladder sludge versus microlithiasis. No CT evidence of acute cholecystitis. Dictated and Authenticated by: Hugo Shultz MD. Ordering:JAMEY Neal MD
[2021-04-10 02:26] LABS: Bilirubin Negative (Negative); Blood Moderate (Negative); Clarity Sl Cloudy (Clear); Glucose 250 mg/dL (Negative); Ketones Negative (Negative); Leukocyte Esterase Small (Negative); Nitrite Negative (Negative); Urobilinogen 0.2 EU/dL (Up TO 0.2)
[2021-04-10 02:27] LABS: Bacteria Rare HPF (Negative); C & S Indicated? Yes; Casts Negative LPF (Negative); Crystals Negative HPF (Negative); Epithelial Cells Rare HPF (Negative); Mucus Negative (Negative)
[2021-04-10] MEDS: MEROPENEM 1 GM in Normal Saline 100 ML IVPB ×3 (04:38→17:45)
[2021-04-10] MEDS: Normal Saline 500 ML 30 ML IV (04:39)
--- NOTE | 2021-04-10 06:26 | HPE_ITS ---
Date of service: 04/10/21 Time of Service: 06:27 Assessment and Plan Assessment and plan (1) Allergic reaction caused by a drug: Start date: 04/09/21 Status: Acute Assessment and plan: This is a 61-year-old gentleman who has CP with spastic quadriplegia and at risk for aspiration who apparently had a reaction to ciprofloxacin was given preprocedure for right ureteral stent removal status post staghorn calculi removal of the right renal system at [facility]. He had complications during this procedure and had a prolonged course at [facility] requiring meropenem for resistant pathogen and his urine. The patient did respond to treatment of anaphylaxis with Benadryl, Solu-Medrol and epinephrine with hives resolving and no recurrent fever or significant bronchospasm. He will continue with oral prednisone 40 mg daily over the next 3 days with observation. He should avoid fluoroquinolones. Qualifiers: Encounter type: initial encounter Qualified Code(s): T78.40XA - Allergy, unspecified, initial encounter (2) Fever: Start date: 04/09/21 Status: Acute Assessment and plan: May be secondary to drug reaction but also need to consider acute infection either the right renal cyst with possible pyelonephr itis by imaging and possible right lower lobe infiltrate with a history of aspiration. He will be replaced on meropenem. Qualifiers: Fever type: drug-induced Qualified Code(s): R50.2 - Drug induced fever (3) Pyelonephritis, acute: Start date: 04/09/21 Status: Acute Assessment and plan: Possible right pyelonephritis by imaging with patient having recent procedure. Follow-up with [facility] urology at least with phone consultation and patient restarted on meropenem. (4) Aspiration pneumonia: Start date: 04/09/21 Status: Acute Assessment and plan: CT scan positive for possible infiltrate right lower lobe and patient on meropenem with expansion of antibiotic coverage if respiratory symptoms progress. More broad-spectrum antibiotics focusing on aspiration coverage should be considered. Qualifiers: Aspiration pneumonia type: unspecified Laterality: right Lung location: lower lobe of lung Qualified Code(s): J69.0 - Pneumonitis due to inhalation of food and vomit (5) CP (cerebral palsy), spastic, quadriplegic: Status: Chronic Assessment and plan: With spastic quadriplegia lifelong. Patient is total care with toilet transfers and wheelchair and institutionalized with 24-hour care. History of present at risk for aspiration and diet will be modified to outpatient specifications. (6) Nephrolithiasis: Status: Chronic Assessment and plan: Patient does have residual right ureterolithiasis but is nonobstructing. Consult with [facility] urology as discussed. History of Present Illness History of Present Illness Chief Complaint: Anaphylactic reaction to ciprofloxacin Narrative: ?This is a 61-year-old patient who has a spastic quadriplegic with cerebral palsy attended at a care facility with only for resident and having full-time caretakers being Max lift and wheelchair for daytime activity. He recently had stenting of his right ureter after percutaneous removal of staghorn calculus with right nephrostomy tube placed at [facility] on the of this month. During that hospital stay the patient was placed on meropenem for resistant pathogen, recurrent hypotension and fever and had a nephrostomy tube removed once it was assured that the ureteral stent was draining and no recurrent ureteral calculi obstruction was occurring. He did return for removal of the stent and was given ciprofloxacin prior to stent removal. We returned to his resident he was having fever with high and difficulty breathing and a possible anaphylactic reaction to ciprofloxacin. He was brought to the ED by ambulance and treated for possible anaphylaxis and responded. CT scan was unrevealing for acute process though there was some question of pulmonary pathology. Patient was replaced on meropenem because of recurrent fever and recent events and admitted for continued treatment of po ssible anaphylactic reaction for observation and follow-up with [facility] urology as to further guidance for treatment of his acute process. He did have bronchospasm with response to bronchodilators and is chronically not on bronchodilators. The patient is attended by his caregivers 24 hours a day wheth er he is in the hospital or at his facility. Patient offers no further history. The patient does reside at [facility]. Review of Systems Narrative: 13 point review of systems otherwise unrevealing or stable with patient having minimal ability to communicate. [facility] Medical History Anxiety BPH (benign prostatic hyperplasia) Cholelithiasis without obstruction Chronic constipation Colpocephaly CP (cerebral palsy), spastic, quadriplegic Diabetes Diverticular disease Exotropia GERD (gastroesophageal reflux disease) Hip subluxation Intellectual disability Kidney papillary necrosis Left inguinal hernia TAPIA (nonalcoholic steatohepatitis) Nephrolithiasis OAB (overactive bladder) Obesity Obstructive sleep apnea Optic atrophy Osteoporosis Recurrent UTI Umbilical hernia Urinary incontinence Surgical History No significant past surgical history Family History Father , PNA No problems noted. Mother , SMOKING No problems noted. Brother , MVA No problems noted. Sister Substance abuse Social History Smoking/Tobacco Use Status: Never Smoking risk assessment performed?: Yes Alcohol Intake: never Drug use: Never Household members: other Housing: assisted living facility current occupation: Disabled Additional Social history: Lives at [facility] since Oct 2019. Guardian Mouna Landis since . Meds Allergies and Home Medications Allergies Allergy/AdvReac Type Severity Reaction Status Date / Time ciprofloxacin Allergy Severe Wheezing Unverified 04/10/21 00:17 wool Allergy Unverified 01/21/21 10:42 kapok Allergy Uncoded 01/21/21 10:42 Home Medications Medication Instructions Recorded Confirmed Type aspirin 81 mg tablet,delayed 81 mg PO DAILY 12/12/19 04/10/21 History release cholecalciferol (vitamin D3) 25 25 mcg PO DAILY 12/12/19 04/10/21 History mcg (1,000 unit) tablet omeprazole 20 mg capsule,delayed 20 mg PO DAILY 12/12/19 04/10/21 History release polyethylene glycol 3350 17 17 gm PO DAILY 12/12/19 04/10/21 History gram/dose oral powder tamsulosin 0.4 mg capsule 0.4 mg PO BID cap 12/12/19 04/10/21 History vit C,E,zinc,copper-rcqiw1i 250 1 cap PO DAILY 12/12/19 04/10/21 History mg-lutein 5 mg-zeaxanthin 1 mg capsule fesoterodine 4 mg tablet,extended 4 mg PO DAILY 04/09/20 04/10/21 History release 24 hr carbamide peroxide 6.5 % ear drops 5 drp OTIC (EAR) DAILY PRN 01/21/21 04/10/21 History fluticasone propionate 50 2 spray INTRANASAL DAILY 01/21/21 04/10/21 History mcg/actuation nasal spray,suspension metformin 500 mg tablet,extended 500 mg PO DAILY tab 01/21/21 04/10/21 History release 24 hr starch (thickening) pwd PO PRN 01/21/21 02/10/21 History Exam Narrative Exam Narrative: General: Patient appears older than stated age, comfortable lying in bed with head of 45 degree angle and in no acute distress. He is nonverbal. He does appear to understand questions and answers nonverbally. HEENT: Normocephalic, eyes with pupils equal and reactive to light symmetrically, extraocular movement intact and sclera anicteric. Oral mucosa moist. Neck: Supple without JVD. Back: Stooped posture without CVA tenderness. Lungs: Fair aeration with occasional expiratory wheeze, bronchovesicular breath sounds diffusely and no focalizing rales or rhonchi. Heart: Regular rate and rhythm with no murmurs or gallops appreciated. Abdomen: Obese contour, soft and nontender to palpation with no palpable hepatosplenomegaly. Genitalia/rectal: Exam deferred. Extremities: Patient has normal movement of upper extremities and markedly atrophic and contracted lower extremities. Lower extremities appear dysmorphic and smaller than normal being disproportionately small to his body. Peripheral pulses intact. No clubbing, cyanosis or pitting edema. Skin: Pale, warm and dry. Neuro: Cranial nerves II through XII appear to be grossly intact, decreased motor lower extremities with sleep motor function loss and I recommend with decreased motor function. Flexion contractures lower extremities. Psych: Normal affect and mood the patient nonverbal. Not able to assess for remote and recent memory. Manifesting no abnormal thought processes. Results Imaging Imaging Studies: Exam: CT Chest With Contrast; Diagnostic Exam date and time: 04/10/2021 12:14 AM Age: 61 years old Clinical indication: Fever; Cough; Prior surgery; Surgery date: <1 month; Surgery type: Renal stent placement 04/01/21 TECHNIQUE: Imaging protocol: Diagnostic computed tomography of the chest with contrast. 3D rendering (Not supervised by radiologist): MIP and/or 3D reconstructed images were created by the technologist. Radiation optimization: All CT scans at this facility use at least one of these dose optimization techniques: automated exposure control; mA and/or kV adjustment per patient size (includes targeted exams where dose is matched to clinical indication); or iterative reconstruction. Contrast material: [id number]; Contrast volume: 100 ml; Contrast route: INTRAVENOUS (IV);? COMPARISON: 1. CR XR PORTABLE CHEST AP 04/09/2021 10:[address] ABDOMEN PELVIS WO/W 02/04/2021 9:44:41 AM FINDINGS: Thyroid: No mass. Lungs: Mild subpleural consolidation within the posterior right lung base. Also noted is mild subpleural atelectasis within the posterior left lung base. Otherwise no pulmonary consolidation or mass. Pleural spaces: There is trace right pleural effusion, this is significantly decreased compared to study dated 02/04/2021. No left pleural effusion. No pneumothorax. Heart: Unremarkable. No cardiomegaly. No pericardial effusion. Aorta: Unremarkable. No aortic aneurysm or dissection. Lymph nodes: Unremarkable. No enlarged lymph nodes. Bones/joints: There is mild scoliotic curvature of the thoracolumbar spine. No acute fracture. There are multilevel anterior flowing bridging marginal osteophytes within the mid to lower thoracic spine. Soft tissues: Unremarkable. IMPRESSION: Mild subpleural consolidation within the posterior right lung base may represent compressive atelectasis related to trace right pleural effusion, however superimposed infection is not excluded in the appropriate clinical setting. There has been significant interval reduction in size of trace right pleural effusion compared to study dated 02/04/2021. PROCEDURE INFORMATION: Exam: CT Abdomen And Pelvis With Contrast Exam date and time: 04/10/2021 12:14 AM Age: 61 years old Clinical indication: Fever; Cough; Prior surgery; Surgery date: <1 month; Surgery type: Renal stent placement 04/01/21 TECHNIQUE: Imaging protocol: Computed tomography of the abdomen and pelvis with contrast. 3D rendering (Not supervised by radiologist): MIP and/or 3D reconstructed images were created by the technologist. Radiation optimization: All CT scans at this facility use at least one of these dose optimization techniques: automated exposure control; mA and/or kV adjustment per patient size (includes targeted exams where dose is matched to clinical indication); or iterative reconstruction. Contrast material: [id number]; Contrast volume: 100 ml; Contrast route: INTRAVENOUS (IV);? COMPARISON: 1. CR XR PORTABLE CHEST AP 04/09/2021 10:[address] ABDOMEN PELVIS WO/W 02/04/2021 9:44:41 AM FINDINGS: Lungs: Lung bases are clear. Liver: Unremarkable. No mass. Gallbladder and bile ducts: There is layering hyperattenuation within the gallbladder suggestive for sludge versus microlithiasis. No pericholecystic inflammatory stranding or gallbladder wall thickening. No biliary dilation. Pancreas: Unremarkable. No ductal dilation. Spleen: Unremarkable. No splenomegaly. Adrenal glands: Normal. No mass. Kidneys and ureters: There is irregular asymmetric hypoenhancement of the mid right kidney with associated perinephric stranding. There is overlying trace curvilinear fluid collection with suggestion of thin peripheral wall measuring 2.4 cm by 0.8 cm (series 4, image 62) by 2.0 cm craniocaudad (sagittal image 107) with suggestion of adjacent overlying linear tract suggestive for prior percutaneous nephrostomy tube.. There is small nonobstructive 4 mm nephrolith within the right renal collecting system. No hydronephrosis. There is asymmetric prominence of the right ureter which is mildly dilated diffusely without obstructive lesion identified. There is punctate 1 mm calcification within the distal right ureter dependently, however nonobstructive. Stomach and bowel: No focal colonic mural thickening or significant pericolonic inflammatory stranding. There is mild to moderate colonic stool burden, correlate for constipation. No focal abnormality of the small bowel. No bowel obstruction. Appendix: No evidence of acute appendicitis. Intraperitoneal space: No free air. No significant fluid collection. Vasculature: Within normal limits. No abdominal aortic aneurysm or dissection. Lymph nodes: No pathologically enlarged lymph nodes. Urinary bladder: Mild diffuse bladder wall thickening. Reproductive: Prostate gland is mildly enlarged. Bones/joints: Severe degenerative changes of the bilateral hips. Also noted are chronic changes of the bilateral hemipelvis ease. There is partial ankylosis of the sacroiliac joints. There is mild scoliotic curvature of the thoracolumbar spine with scattered partial ankylosis of the posterior elements of the lumbar spine. No acute fracture. Soft tissues: There is trace fat in the left inguinal canal. There is small fat containing umbilical hernia. IMPRESSION: 1. Asymmetric irregular hypoenhancement of the right renal midpole with overlying perinephric stranding concerning for infectious/inflammatory process such as pyelonephritis. Correlate clinically. 2. Small curvilinear fluid collection with suggestion of thin peripheral wall measuring 2.4 cm x 0.8 cm x 2.0 cm overlying area of irregular right kidney hypoenhancement with suggestion of associated thin tract, suspect related to prior percutaneous nephrostomy tube. Correlate clinically for seroma/hematoma versus perirenal microabscess. 3. Mild diffuse dilation of the right ureter without discrete obstructive lesion. Possibly related to prior stent versus recently passed stone versus acute infectious/inflammatory process. Correlate clinically. 4. There is punctate 1 mm calcification within the distal right ureter dependently, however this is not obstructive. 5. Mild diffuse bladder wall thickening. May be related to incomplete distension versus cystitis versus chronic bladder outlet obstruction. Correlate clinically. 6. Gallbladder sludge versus microlithiasis. No CT evidence of acute cholecystitis. Labs Result diagrams: 04/09/21 21:30 04/09/21 21:30 Labs: Laboratory Results - last 24 hr 04/09/21 04/09/21 04/09/21 21:30 21:30 21:30 WBC 16.30 H RBC 4.91 Hgb 13.2 L Hct 39.5 L MCV 80.4 MCH 26.9 L MCHC 33.4 RDW 15.5 H Plt Count 296 MPV 9.4 Immature Gran % 3.6 Neutrophils % 68.3 Lymphocytes % 17.9 Monocytes % 7.7 Eosinophils % 2.2 Basophils % 0.3 Nucleated RBC % 0 Absolute Neutrophils 11.13 H Absolute Lymphocytes 2.92 Absolute Monocytes 1.26 H Absolute Eosinophils 0.36 Absolute Basophils 0.05 RBC Morphology See below Microcytosis 1+ VBG Lactate 1.2 Sodium 133 L Potassium 4.3 Chloride 97 L Carbon Dioxide 24.5 Anion Gap 11.5 H BUN 12 Creatinine 0.7 Estimated GFR/1.73 m2 >= 60.00 Glucose 185 H Calcium 8.9 Total Bilirubin 0.6 AST 20 ALT 33 Alkaline Phosphatase 95 Total Protein 8.2 Albumin 3.0 L Urine Color Urine Clarity Urine pH Ur Specific [place] Urine Protein Urine Ketones Urine Blood Urine Nitrite Urine Bilirubin Urine Urobilinogen Ur Leukocyte Esterase Urine RBC Urine WBC Ur Epithelial Cells Urine Crystals Urine Bacteria Urine Casts Urine Mucus Ur Culture Indicated? Urine Glucose COVID-19 Source SARS-CoV-2 (PCR) 04/09/21 04/10/21 04/10/21 22:04 00:25 02:15 WBC RBC Hgb Hct MCV MCH MCHC RDW Plt Count MPV Immature Gran % Neutrophils % Lymphocytes % Monocytes % Eosinophils % Basophils % Nucleated RBC % Absolute Neutrophils Absolute Lymphocytes Absolute Monocytes Absolute Eosinophils Absolute Basophils RBC Morphology Microcytosis VBG Lactate 0.7 Sodium Potassium Chloride Carbon Dioxide Anion Gap BUN Creatinine Estimated GFR/1.73 m2 Glucose Calcium Total Bilirubin AST ALT Alkaline Phosphatase Total Protein Albumin Urine Color Yellow Urine Clarity Sl cloudy Urine pH 7.0 Ur Specific [place] 1.010 Urine Protein Negative Urine Ketones Negative Urine Blood Moderate H Urine Nitrite Negative Urine Bilirubin Negative Urine Urobilinogen 0.2 Ur Leukocyte Esterase Small H Urine RBC 5-10 H Urine WBC 5-10 Ur Epithelial Cells Rare Urine Crystals Negative Urine Bacteria Rare Urine Casts Negative Urine Mucus Negative Ur Culture Indicated? Yes Urine Glucose 250 H COVID-19 Source Nasal/nares SARS-CoV-2 (PCR) Negative Last Vital Signs Temp 36.2 C L 04/10/21 03:38 Pulse 75 04/10/21 04:12 Resp 18 04/10/21 03:38 BP 125/76 04/10/21 03:38 Pulse Ox 94 04/10/21 03:38 COVID-19 Screening Have you, or household traveled for leisure in last 14 days?: No Had IN PERSON contact w/suspected or confirmed C-19 person: No
[2021-04-10] MEDS: predniSONE 20 MG TAB 40 MG PO (08:23)
[2021-04-10] MEDS: Aspirin E.C. 81 MG TABEC PO (08:23)
[2021-04-10] MEDS: Tamsulosin 0.4 MG CAPCR PO ×2 (08:24→19:48)
[2021-04-10] MEDS: Enoxaparin 40 MG/0.4 ML SYR SC (08:24)
[2021-04-10] MEDS: Omeprazole 20 MG CAPCR PO (08:24)
[2021-04-10] MEDS: Insulin Aspart 300 UNITS/3 ML PEN SC ×3 (08:25→17:10)
--- NOTE | 2021-04-10 12:23 | NUR.NOTE ---
keys given to caregiver, Joann. Nursing Note:
--- NOTE | 2021-04-10 17:48 | INITIAL_ITS ---
- If Service Date Differs Date of service: 04/10/21 Time of Service: 17:48 Care Management Initial Assess REASON FOR HOSPITALIZATION:: Reaction to Cipro; Fever PAST MEDICAL HISTORY/PAST SURGICAL HISTORY:: Medical History. Anxiety. BPH (benign prostatic hyperplasia). Cholelithiasis without obstruction. Chronic constipation. Colpocephaly. CP (cerebral palsy), spastic, quadriplegic. Diabetes. Diverticular disease. Exotropia. GERD (gastroesophageal reflux disease). Hip subluxation. Intellectual disability. Kidney papillary necrosis. Left inguinal hernia. TAPIA (nonalcoholic steatohepatitis). Nephrolithiasis. OAB (overactive bladder). Obesity. Obstructive sleep apnea. Optic atrophy. Osteoporosis. Recurrent UTI. Umbilical hernia. Urinary incontinence. Surgical History. No significant past surgical history PREVIOUS FUNCTIONAL STATUS/SOCIAL/FAMILY SUPPORTS:: Dimas lives at [facility] in [place]. He has a guardian, Mouna Boby. He has spastic quadriplegia with cerebral palsy and requires complete care. He is wheelchair bound and requires a olga lidia lift. CURRENT FUNCTIONAL STATUS:: Dimas was sitting up in bed when CM met with him. He was pleasant in interaction, although his communication was limited. He reported that he has lived at [facility] for a while, and he enjoys it there. He stated that he had a fever when he arrived. Per report, he had a reaction to Cipro. His medication was changed and will be monitored for reaction. CM will continue to follow. ADVANCE DIRECTIVES:: Not on file. Guardianship on file, Mouna Landis. Has patient been provided with info about the portal/API?: No Did the patient sign up for the portal?: No CODE STATUS:: Full Code INSURANCE COVERAGE / FINANCIAL ISSUES:: [facility] CURRENT HOME/COMMUNITY SERVICES/EQUIPMENT:: Dimas is wheelchair bound and requires complete care, which is provided at the longterm where he lives. PRIMARY CARE PHYSICIAN:: Starr Llamas POTENTIAL DISCHARGE NEEDS:: Follow up appointments. PATIENT/FAMILY EDUCATION NEEDS:: Review discharge instructions with care team at his longterm, discussion of self care needs and goals of care. ANTICIPATED BARRIERS TO DISCHARGE:: None identified. TRANSPORTATION:: Via w/c van [facility] vs facility. PLAN:: Dimas will return to [facility] once he is medically cleared. He will be transported via [facility] vs EMS. He will follow up with his PCP and discharge plan of care. CM will continue to follow.
[2021-04-11] VITALS (8 sets, daily range): BP systolic 115–138; BP diastolic 68–81; PULSE 60–79; RESP 18–20; TEMP 36.1–36.9; O2SAT 93–98
[2021-04-11] MEDS: Normal Saline Flush 10 ML SYR IVP ×2 (01:29→19:41)
[2021-04-11] MEDS: MEROPENEM 1 GM in Normal Saline 100 ML IVPB ×3 (01:30→18:41)
[2021-04-11 06:48] LABS: Abs Immature Grans 0.45 10^3/uL (0.0-0.06); Absolute Basophil Count 0.03 10^3/uL (0.0-0.2); Absolute Lymphocyte Count 1.86 10^3/uL (1.2-3.4); Absolute Monocyte Count 1.05 10^3/uL (0.1-0.8); Basophils % 0.2; HCT 34.4 % (40.0-50.0); HGB 11.2 g/dL (13.5-17.5); Immature Grans % 3.3; Lymphocytes % 13.8; MCH 26.5 pg (27.0-33.0); MCHC 32.6 % (32.0-36.0); MCV 81.3 fL (80-95); MPV 10.3 fL (8.0-11.0); Monocytes % 7.8; Neutrophils % 74.9; Nucleated RBC 0 %; Platelet Count 339 10^3/uL (130-400); RBC 4.23 10^6/uL (4.36-5.78); RDW 15.9 % (11.8-14.1); RDW-SD 46.8 fL; WBC 13.49 10^3/uL (4.4-10.8)
[2021-04-11 07:03] LABS: ALT 29 U/L (16-63); AST 15 U/L (15-37); Albumin 2.6 g/dL (3.4-5.0); Alkaline Phosphatase 75 U/L (46-116); Anion Gap 8.4 mmol/L (3-11); BUN 18 mg/dL (7-18); Bilirubin, Total 0.4 mg/dL (0.2-1.0); CO2 26.6 mmol/L (21.0-32.0); CREATININE 0.7 mg/dL (0.70-1.30); Calcium 8.4 mg/dL (8.5-10.1); Chloride 106 mmol/L (98-107); Glucose 262 mg/dL (74-106); Potassium 3.9 mmol/L (3.5-5.1); Sodium 141 mmol/L (136-145); Total Protein 7.3 g/dL (6.4-8.2)
[2021-04-11] MEDS: Polyethylene Glycol 3350 17 GM PACKET PO (07:54)
[2021-04-11] MEDS: Omeprazole 20 MG CAPCR PO (07:54)
[2021-04-11] MEDS: predniSONE 20 MG TAB 40 MG PO (07:54)
[2021-04-11] MEDS: Tamsulosin 0.4 MG CAPCR PO ×2 (07:54→19:40)
[2021-04-11] MEDS: Aspirin E.C. 81 MG TABEC PO (07:54)
[2021-04-11] MEDS: Enoxaparin 40 MG/0.4 ML SYR SC (07:54)
[2021-04-11] MEDS: Insulin Aspart 300 UNITS/3 ML PEN SC ×3 (08:06→17:21)
--- NOTE | 2021-04-11 10:14 | CMPROGNOTE_ITS ---
- If Service Date Differs Date of service: 04/11/21 Time of Service: 10:14 Care Management Progress Note S/O: Dimas was sitting up in bed when CM met with him. He reported that he wants to feel better before returning home, to [place]. He reported that he is feeling better than yesterday, but that the MD would like him to remain overnight to be monitored. CM will continue to follow. A: Dimas is a 61 year old male admitted to [facility] on 04/10/21 with a reaction to Cipro, fever. P: Dimas will return to [place] once he is medically cleared. He will be transported via [facility] vs EMS. He will follow up with his PCP and discharge plan of care. CM will continue to follow.
--- NOTE | 2021-04-11 10:33 | W.PM.PROGNOT ---
Date of Service Date of service: 04/11/21 Time of Service: 10:33 Assessment and Plan Assessment and plan (1) Aspiration pneumonia: Status: Acute Assessment and plan: Questionable dx d/t finding of possible RLL infiltrate. No clinical signs/sxs of PNA. Is on Meropenem for phyelonephritis. Qualifiers: Aspiration pneumonia type: unspecified Laterality: right Lung location: lower lobe of lung Qualified Code(s): J69.0 - Pneumonitis due to inhalation of food and vomit (2) Pyelonephritis, acute: Status: Acute Assessment and plan: Cont Meropenem. Earlier culture grew Klebsiella Pneumoniae that was only sensitive to several IV medications. On Meropenem. WBC count improving. Feeling overall better. Urine culture obtained this admission growing a gram neg beto. Waiting for final ID and sensitivities. (3) Allergic reaction caused by a drug: Status: Acute Assessment and plan: Previous reaction to cipro. Continues on prednisone 40mg for a total of 3 doses beginning at time of this admission. Qualifiers: Encounter type: initial encounter Qualified Code(s): T78.40XA - Allergy, unspecified, initial encounter (4) CP (cerebral palsy), spastic, quadriplegic: Status: Chronic Assessment and plan: Total care with toilet transfers and wheelchair. Lives in a group living situation. Subjective Subjective Patient reports: no new complaints, feels better and afebrile; denies diarrhea, nausea, vomiting and shortness of breath Interval history since last seen: He expresses a desire to go home. Exam Const General: cooperative and no acute distress Nutritional Appearance: overweight Orientation: alert Resp Effort & Inspection: normal respiratory effort Auscultation: clear to auscultation bilaterally Cardio Rate: regular rate Rhythm: regular rhythm Heart Sounds: S1 normal and S2 normal GI Palpation: soft and nontender Skin General skin exam: no rashes or lesions noted Extrem General: no pedal edema and no calf tenderness Objective Last Vital Signs Temp 36.3 C L 04/11/21 03:17 Pulse 71 04/11/21 03:17 Resp 18 04/11/21 03:17 BP 115/68 04/11/21 03:17 Pulse Ox 94 04/11/21 08:12 Laboratory Results - last 24 hr 04/11/21 04/11/21 06:10 06:10 WBC 13.49 H RBC 4.23 L Hgb 11.2 L Hct 34.4 L MCV 81.3 MCH 26.5 L MCHC 32.6 RDW 15.9 H Plt Count 339 MPV 10.3 Immature Gran % 3.3 Neutrophils % 74.9 Lymphocytes % 13.8 Monocytes % 7.8 Eosinophils % 0.0 Basophils % 0.2 Nucleated RBC % 0 Absolute Neutrophils 10.10 H Absolute Lymphocytes 1.86 Absolute Monocytes 1.05 H Absolute Eosinophils 0.00 Absolute Basophils 0.03 Sodium 141 Potassium 3.9 Chloride 106 Carbon Dioxide 26.6 Anion Gap 8.4 BUN 18 D Creatinine 0.7 Estimated GFR/1.73 m2 >= 60.00 Glucose 262 H Calcium 8.4 L Total Bilirubin 0.4 AST 15 ALT 29 Alkaline Phosphatase 75 Total Protein 7.3 Albumin 2.6 L
--- NOTE | 2021-04-11 15:38 | PDOC.CMPRO ---
- If Service Date Differs Date of service: 04/11/21 Time of Service: 15:38
[2021-04-12] MEDS: MEROPENEM 1 GM in Normal Saline 100 ML IVPB ×3 (02:56→17:38)
[2021-04-12] MEDS: Normal Saline Flush 10 ML SYR IVP ×4 (02:57→20:05)
[2021-04-12] MEDS: Normal Saline 500 ML 30 ML IV (02:57)
[2021-04-12 04:13] VITALS: BP 113/70; PULSE 67; RESP 18; TEMP 36.1; O2SAT 95
[2021-04-12 06:39] LABS: HCT 37.8 % (40.0-50.0); HGB 12.1 g/dL (13.5-17.5); MCH 26.1 pg (27.0-33.0); MCV 81.6 fL (80-95); MPV 9.6 fL (8.0-11.0); Platelet Count 411 10^3/uL (130-400); RBC 4.63 10^6/uL (4.36-5.78); RDW 15.9 % (11.8-14.1); WBC 10.33 10^3/uL (4.4-10.8)
[2021-04-12 07:39] VITALS: BP 145/82; PULSE 67; RESP 18; TEMP 36.6; O2SAT 96
[2021-04-12] MEDS: Omeprazole 20 MG CAPCR PO (07:53)
[2021-04-12] MEDS: Enoxaparin 40 MG/0.4 ML SYR SC (07:53)
[2021-04-12] MEDS: predniSONE 20 MG TAB 40 MG PO (09:06)
[2021-04-12] MEDS: Tamsulosin 0.4 MG CAPCR PO ×2 (09:06→20:05)
[2021-04-12] MEDS: Aspirin E.C. 81 MG TABEC PO (09:06)
[2021-04-12 11:11] VITALS: BP 123/75; PULSE 72; RESP 14; TEMP 36.7; O2SAT 94
[2021-04-12] MEDS: Insulin Aspart 300 UNITS/3 ML PEN SC ×2 (12:22→16:48)
--- NOTE | 2021-04-12 14:18 | CHAPLAIN ---
Dimas was in this recliner watching tv. He likes to watch [facility], especially when he is in the hospital himself. H didn't need anything at the moment he said, but I will continue to visiti.
--- NOTE | 2021-04-12 14:24 | CMPROGNOTE_ITS ---
- If Service Date Differs Date of service: 04/12/21 Time of Service: 14:24 Care Management Progress Note S/O: Dimas was sitting up in his chair when CM met with him. He was pleasant and engaged in conversation. CM discussed his discharge plan, which will be for him to remain at [facility] until tomorrow in order for him to receive IV antibiotics overnight. He is agreeable to stay, as he stated that he doesn't want to come back to the ER. ROSMERY called [facility] Alex[facility], and discussed his discharge plan with Temitope Fernandez ([phone]), who will coordinate his transportation via facility w/c van. He will be picked up by [facility] staff at 1pm. CM also called oMuna, his guardian, and left a voicemail with details about his discharge plan. CM will continue to follow. A: Dimas is a 61 year old male admitted to [facility] on 04/10/21 with a reaction to Cipro, fever. P: Dimas will return to [facility] once he is medically cleared. He will be transported via facility w/c van by [facility] staff. He will follow up with his PCP and discharge plan of care. CM will continue to follow.
[2021-04-12 15:47] VITALS: BP 113/71; PULSE 77; RESP 18; TEMP 36.8; O2SAT 95
[2021-04-12 19:34] VITALS: BP 121/75; PULSE 81; RESP 17; TEMP 36.7; O2SAT 93
[2021-04-12 23:31] VITALS: BP 118/66; PULSE 72; RESP 17; TEMP 36.6; O2SAT 92
[2021-04-13] MEDS: MEROPENEM 1 GM in Normal Saline 100 ML IVPB ×2 (02:08→10:26)
[2021-04-13] MEDS: Normal Saline Flush 10 ML SYR IVP ×4 (02:09→11:17)
[2021-04-13] MEDS: Normal Saline 500 ML 30 ML IV (02:09)
[2021-04-13 03:16] VITALS: BP 109/67; PULSE 60; RESP 17; TEMP 36; O2SAT 96
[2021-04-13 08:28] VITALS: BP 127/82; PULSE 61; RESP 16; TEMP 36.8; O2SAT 100
[2021-04-13] MEDS: Aspirin E.C. 81 MG TABEC PO (09:05)
[2021-04-13] MEDS: Tamsulosin 0.4 MG CAPCR PO (09:06)
[2021-04-13] MEDS: Enoxaparin 40 MG/0.4 ML SYR SC (09:06)
[2021-04-13] MEDS: Omeprazole 20 MG CAPCR PO (09:06)
[2021-04-13] MEDS: Nystatin POWDER 15 GM JAR TP (09:19)
--- NOTE | 2021-04-13 10:29 | DSE_ITS ---
Date of service: 04/13/21 Time of Service: 10:30 DS: Diagnosis Discharge Diagnosis (1) Aspiration pneumonia: Status: Acute (2) Pyelonephritis, acute: Status: Acute (3) Allergic reaction caused by a drug: Status: Acute (4) CP (cerebral palsy), spastic, quadriplegic: Status: Chronic Discharge Plan Disposition Patient Disposition: HOME Condition: Good Discharge Details Reason For Visit: ALLERGIC REACTION TO DRUG (CIPRO); FEVER Admit Date/Time: 04/12/21 14:19 Admit Provider: Tamir Jj Attending Provider: Tamir Jj Primary Care Provider: Starr Llamas [facility] Course Hospital Course: This is a 61-year-old patient who has a spastic quadriplegic with cerebral palsy living at a care facility with full-time caretakers.Transfers with Max lift and wheelchair for daytime activity.? He recently had stenting of his right ureter after percutaneous removal of staghorn calculus with right nephrostomy tube placed at [facility] on the of this month.? During that hospital stay the patient was placed on meropenem for resistant pathogen, recurrent hypotension and fever and had a nephrostomy tube removed once it was assured that the ureteral stent was draining and no recurrent ureteral calculi obstruction was occurring.? He did return for removal of the stent and was given ciprofloxacin prior to stent removal.? When he returned to his resident he developed a fever and difficulty breathing and a possible anaphylactic reaction to ciprofloxacin.? He was brought to the ED by ambulance and treated for possible anaphylaxis and responded.? CT scan was unrevealing for acute process though there was some question of pulmonary pathology.? Patient was replaced on meropenem because of recurrent fever and recent events and admitted for continued treatment of possible anaphylactic reaction for observation and follow-up with [facility] urology as to further guidance for treatment of his acute process.? He did have bronchospasm with response to bronchodilators and is chronically not on bronchodilators.? The patient is attended by his caregivers 24 hours a day whether he is in the hospital or at his facility.? Patient offered no further history.? The patient does reside at [place]. His urine culture grew a Klebsiella species that was resistant to all but Imipenem and Unasyn. He completed a 3 day course of Meropenem. He had no further respiratory symptoms while in the hospital. A urine culture on 03/26/21 also grew a Klebsiella pneumoniae species that also showed resistance but was also sensitive to gentamycin. On 12/25/20 a urine cx grew 2 species of Klebsiella pneumoniae, both sensistive onsly to Imipenem and Intermediate sensitivity to Unasyn. He will need a follow up with his PCP in 1-2 weeks. A repeat urinalysis will be ordered for one week post-discharge. Home Meds and New Rx's Prescriptions: New nystatin 100,000 unit/gram Powder 0 g topical BID Qty: 0 RF: 0 Continued carbamide peroxide [Debrox] 6.5 % drops 5 drp otic (ear) DAILY PRNRF: 0 [employer] Thick-It Powder PO PRNRF: 0 fluticasone propionate 50 mcg/actuation spray,suspension 2 spray intranasal DAILY RF: 0 Toviaz 4 mg tablet extended release 24 hr 4 mg PO DAILY RF: 0 polyethylene glycol 3350 17 gram/dose powder 17 gm PO HS RF: 0 aspirin [Adult Low Dose Aspirin] 81 mg tablet,delayed release (DR/EC) 81 mg PO DAILY RF: 0 Ocuvite Adult 50 Plus 250-5-1 mg capsule 1 cap PO DAILY RF: 0 cholecalciferol (vitamin D3) 25 mcg (1,000 unit) tablet 25 mcg PO DAILY RF: 0 omeprazole 20 mg capsule,delayed release(DR/EC) 20 mg PO DAILY RF: 0 tamsulosin 0.4 mg capsule 0.4 mg PO BID RF: 0 metformin 500 mg tablet extended release 24 hr 500 mg PO DAILY RF: 0 loratadine 10 mg Tablet 10 mg PO DAILY RF: 0 citalopram 20 mg tablet 30 mg PO DAILY RF: 0 calcium polycarbophil [FiberCon] 625 mg Tablet 1,250 mg PO BID RF: 0 calcium carbonate 500 mg calcium (1,250 mg) Tablet,Chewable 500 mg PO BID RF: 0 Discharge Instructions Instructions: Urinary Tract Infection in Men (GEN) Stand Alone Forms: Nursing Discharge Form Referrals: Starr Llamas [Primary Care Provider] - Activity:: Activity as Tolerated Equipment/Supplies:: No Equipment Needed Diet:: Diabetic Diet Discharge Orders Discharge Orders: Discharge Order (Routine); Ordered 04/13/21 Ordered By: Scottie Turk DS: Summary Time Spent with Patient providing and/or coordinating discharge services: Greater than 30 minutes Status at Discharge Functional status at discharge: wheelchair bound Overall status at discharge: patient is back to baseline Mental Status: mental status grossly normal (At his baseline) Speech and Movement: speech clear Mood: congruent mood Affect: normal affect Exam Const General: cooperative and no acute distress Nutritional Appearance: overweight Orientation: alert, oriented to person and oriented to place Resp Effort & Inspection: normal respiratory effort Auscultation: clear to auscultation bilaterally Cardio Rate: regular rate Rhythm: regular rhythm Heart Sounds: S1 normal and S2 normal GI Palpation: soft and nontender Skin General skin exam: no rashes or lesions noted Extrem General: no pedal edema Psych Mental Status: mental status grossly normal (At his baseline) Speech and Movement: speech clear Mood: congruent mood Affect: normal affect DS: Data Vitals/I&O Vitals and I&O: Vital Signs Temperature 36.8 C 04/13/21 08:28 Temperature Source Temporal Artery Scan 04/13/21 08:28 Pulse 61 04/13/21 08:28 Pulse Rhythm Regular 04/13/21 08:28 Pulse 81 04/10/21 01:45 Respiratory Rate 16 04/13/21 08:28 Respiratory Effort Non-Labored 04/13/21 08:28 Respiratory Depth Normal 04/13/21 08:28 Respiratory Pattern Normal 04/13/21 08:28 Blood Pressure 127/82 04/13/21 08:28 Blood Pressure Mean 88 04/10/21 01:45 Blood Pressure Position Sitting 04/09/21 20:40 Pulse Oximetry 100 04/13/21 08:28 Oxygen Delivery Method Room Air 04/13/21 08:28 Oxygen Flow Rate 0 04/13/21 08:28 Fraction of Inspired Oxygen (FIO2) 21 04/12/21 04:16 Pain Level 0 04/13/21 09:19 Intake & Output 04/12/21 04/12/21 04/13/21 11:59 23:59 11:59 Intake Total 1240 / 1820 580 / 1820 177 / 177 Output Total 2175 / 5025 2850 / 5025 775 / 775 Balance -935 / -3205 -2270 / -3205 -598 / -598 Intake: IV 250 / 350 100 / 350 177 / 177 Oral 990 / 1470 480 / 1470 Output: Urine 2175 / 5025 2850 / 5025 775 / 775 Other: Urine Color Yellow Pale Yellow Yellow Urine Appearance Clear Clear Clear Comment Condom catheter changed at this time. Size 29mm used. Condom Cath patent & draining Stool Size Large Stool Characteristics Soft Formed Brown Data Completed and Pending Labs on day of discharge: Preliminary micro results at discharge 04/10/21 00:50 Blood Culture - Preliminary Blood NO GROWTH 72 HOURS 04/10/21 00:25 Blood Culture - Preliminary Blood NO GROWTH 72 HOURS PFS Medical History Anxiety BPH (benign prostatic hyperplasia) Cholelithiasis without obstruction Chronic constipation Colpocephaly CP (cerebral palsy), spastic, quadriplegic Diabetes Diverticular disease Exotropia GERD (gastroesophageal reflux disease) Hip subluxation Intellectual disability Kidney papillary necrosis Left inguinal hernia TAPIA (nonalcoholic steatohepatitis) Nephrolithiasis OAB (overactive bladder) Obesity Obstructive sleep apnea Optic atrophy Osteoporosis Recurrent UTI Umbilical hernia Urinary incontinence Surgical History No significant past surgical history Family History Father , PNA No problems noted. Mother , SMOKING No problems noted. Brother , MVA No problems noted. Sister Substance abuse Social History Smoking/Tobacco Use Status: Never Smoking risk assessment performed?: Yes Alcohol Intake: never Drug use: Never Household members: other Housing: assisted living facility current occupation: Disabled Additional Social history: Lives at [place] since Oct 2019. Guardian Mouna Landis since .
[2021-04-13 11:10] VITALS: BP 143/81; PULSE 73; RESP 18; TEMP 36.6; O2SAT 94
--- NOTE | 2021-04-13 11:37 | NUR.NOTE ---
Nursing Note: At 1135 on 04/13/21, this RN answered a call from the pt.'s guardian, Mouna Landis. RN updated the pt.'s guardian regarding the pt.'s mentation, VS, pain level, head to toe assessment, plan of care (including discharge plan), etc. Pt.'s guardian verbalized understanding and presented with a few questions that were answered. RN will reassess as necessary.
[2021-04-13] MEDS: Insulin Aspart 300 UNITS/3 ML PEN SC (11:44)
--- NOTE | 2021-04-13 12:13 | NUR.NOTE ---
Nursing Note: At 1140 on 04/13/21, this RN called [facility] and spoke with Frida Youngblood RN to give nurse to nurse report on the pt. prior to the pt. being discharged. Frida was updated regarding pt.'s mentation, VS, pain level, head to toe assessment, plan of care (including discharge plan), etc. Frida verbalized understanding and presented with a few questions that were answered. RN will reassess as necessary.
--- NOTE | 2021-04-13 18:20 | CMDISCH_ITS ---
LACE Index Scoring Tool - Questions: Length of Stay (in days): 3 Acuity (Admit via E.D.?): Yes Comorbidities: Diabetes w/o Complication E.D. Visits: 1 - Answers: Total Score: 8 Risk of Readmission: Low Risk Care Management Discharge Reason for Hospitalization: Reaction to Cipro; Fever Discharge Plan: Dimas will return to [facility] once he is medically cleared. He will be transported via facility w/c van by [facility] staff. He will follow up with his PCP and discharge plan of care. Patient/Family Education Needs: Review discharge instructions, discuss Ask Me Three. Services Needed at Discharge: Intermediate Facility (Level 3 [facility] return ), Transportation (Facility W/C Van )
== END 2021-04-13 12:56 | disposition home or self-care (01) | DRG 915 ==
LOC: ER 04-10 02:28 → MS 04-10 03:11
PROVIDERS: Student in an Organized Health Care Education/Training Program; Admitting Provider Family Medicine; Emergency Provider Emergency Medicine; PCP Nurse Practitioner Family; Visit Provider Family Medicine
DX: T88.6XXA Anaphylactic reaction due to adverse effect of correct drug or medicament properly administered, initial encounter (principal); G80.0 Spastic quadriplegic cerebral palsy; J69.0 Pneumonitis due to inhalation of food and vomit; N17.2 Acute kidney failure with medullary necrosis; N20.1 Calculus of ureter; N10 Acute pyelonephritis; T36.8X5A Adverse effect of other systemic antibiotics, initial encounter; Z20.822 Contact with and (suspected) exposure to COVID-19; F41.9 Anxiety disorder, unspecified; N40.0 Benign prostatic hyperplasia without lower urinary tract symptoms; K59.09 Other constipation; E11.9 Type 2 diabetes mellitus without complications; K57.90 Diverticulosis of intestine, part unspecified, without perforation or abscess without bleeding; K21.9 Gastro-esophageal reflux disease without esophagitis; K75.81 Nonalcoholic steatohepatitis (NASH); H50.10 Unspecified exotropia; F79 Unspecified intellectual disabilities; N32.81 Overactive bladder; G47.33 Obstructive sleep apnea (adult) (pediatric); E66.9 Obesity, unspecified; M81.0 Age-related osteoporosis without current pathological fracture; R39.81 Functional urinary incontinence; B96.1 Klebsiella pneumoniae [K. pneumoniae] as the cause of diseases classified elsewhere
CPT/HCPCS: 36415; 51701; 74177; 80053; 85027; 87040; 87077; 87635; 93005; 94640; 96361; 96372; 96374; 99291; J1650; 71045; 71260; 81003; 81015; 83605; 85025; 87086; 87186; 93010; 99220; 99225; 99239; J0171; J1200; J2930; J3490; J7512; J7613

== ENCOUNTER 2021-04-26 11:39 | Outpatient (REF) | payer MEDICARE, MEDICAID, SELFPAY ==
[2021-04-26 13:09] LABS: Abs Immature Grans 0.07 10^3/uL (0.0-0.06); Absolute Basophil Count 0.05 10^3/uL (0.0-0.2); Absolute Eosinophil Count 0.63 10^3/uL (0.0-0.7); Absolute Lymphocyte Count 2.44 10^3/uL (1.2-3.4); Absolute Neutrophil Count 4.04 10^3/uL (1.2-6.7); Basophils % 0.6; HCT 41.2 % (40.0-50.0); HGB 13.3 g/dL (13.5-17.5); Immature Grans % 0.9; Lymphocytes % 31.2; MCH 26.6 pg (27.0-33.0); MCHC 32.3 % (32.0-36.0); MCV 82.4 fL (80-95); MPV 10.9 fL (8.0-11.0); Monocytes % 7.7; Neutrophils % 51.6; Nucleated RBC 0 %; Platelet Count 278 10^3/uL (130-400); RDW 16.5 % (11.8-14.1); RDW-SD 49.2 fL; WBC 7.83 10^3/uL (4.4-10.8)
[2021-04-26 13:16] LABS: Anion Gap 9.1 mmol/L (3-11); BUN 15 mg/dL (7-18); CO2 26.9 mmol/L (21.0-32.0); CREATININE 0.7 mg/dL (0.70-1.30); Calcium 9.1 mg/dL (8.5-10.1); Chloride 103 mmol/L (98-107); Glucose 179 mg/dL (74-106); Potassium 4.3 mmol/L (3.5-5.1); Sodium 139 mmol/L (136-145)
[2021-04-27 14:56] LABS: ALT 23 U/L (16-63); AST 12 U/L (15-37); Albumin 3.5 g/dL (3.4-5.0); Alkaline Phosphatase 80 U/L (46-116); Bilirubin, Direct 0.1 mg/dL (0.0-0.2); Bilirubin, Total 0.3 mg/dL (0.2-1.0); Total Protein 7.5 g/dL (6.4-8.2)
== END 2021-04-26 11:40 | disposition home or self-care (01) ==
LOC: NCHCN 11:39
PROVIDERS: PCP Nurse Practitioner Family; Visit Provider Nurse Practitioner Family
DX: K75.81 Nonalcoholic steatohepatitis (NASH) (principal); N20.0 Calculus of kidney; E87.1 Hypo-osmolality and hyponatremia; E11.9 Type 2 diabetes mellitus without complications; N25.9 Disorder resulting from impaired renal tubular function, unspecified
CPT/HCPCS: 80048; 80076; 85025

== ENCOUNTER 2021-05-27 02:07 | Outpatient (CLI) | payer MEDICARE, MEDICAID, SELFPAY ==
--- NOTE | 2021-05-27 | DI.US_ITS ---
Exam(s) US RENAL EXAM: US RENAL CLINICAL HISTORY: NEPHROLITHIASIS,N20.0. TECHNIQUE: Douglas scale, color and spectral Doppler were used. COMPARISON: CT CT CHEST/ABD/PEL W from 04/10/[address] CHEST/ABD/PEL W from 04/10/2021 FINDINGS: Exam is limited by the patient's body habitus. There is a large amount of perinephric fat limiting v isualization of calcifications. Renal size in cm: Right: 12.8 left: 10.4 Echogenicity: Normal Hydronephrosis: No Cyst or mass: No Nephrolithiasis: None visible Bladder:Normal Prevoid vol: 50 cc Postvoid vol: Not performed Prostate not well seen. IMPRESSION: Limited exam due to patient body habitus. No calcifications or hydronephrosis is seen. DATA REPOSITORY:
== END 2021-05-27 02:27 ==
PROVIDERS: PCP Nurse Practitioner Family; Visit Provider Urology
DX: N20.0 Calculus of kidney (principal)
CPT/HCPCS: 76770

== ENCOUNTER 2021-06-09 15:37 | Outpatient (REF) | payer MEDICARE, MEDICAID, SELFPAY | END 2021-06-09 15:38 | disposition home or self-care (01) | LOC: NCHCN 15:37 | PROVIDERS: PCP Nurse Practitioner Family; Visit Provider Family Medicine | DX: N39.0 Urinary tract infection, site not specified (principal) | CPT/HCPCS: 87077; 87086; 87186 ==

== ENCOUNTER 2021-06-24 11:14 | Outpatient (REF) | payer MEDICARE, MEDICAID, SELFPAY | END 2021-06-24 11:15 | disposition home or self-care (01) | LOC: NCHCN 11:14 | PROVIDERS: PCP Nurse Practitioner Family; Visit Provider Nurse Practitioner Family | DX: N32.0 Bladder-neck obstruction (principal); R32 Unspecified urinary incontinence | CPT/HCPCS: 87077; 87086; 87186 ==

== ENCOUNTER → 2021-07-06 14:26 | Outpatient (BNVA) | payer MEDICARE, MEDICAID, SELFPAY | PROVIDERS: PCP Nurse Practitioner Family; Visit Provider Nurse Practitioner Gerontology | DX: N20.0 Calculus of kidney (principal); R32 Unspecified urinary incontinence; N32.81 Overactive bladder | CPT/HCPCS: 99215 ==

== ENCOUNTER 2021-07-21 11:38 | Outpatient (REF) | payer MEDICARE, MEDICAID, SELFPAY | END 2021-07-21 11:39 | disposition home or self-care (01) | LOC: NCHCN 11:38 | PROVIDERS: PCP Nurse Practitioner Family; Visit Provider Nurse Practitioner Family | DX: N39.0 Urinary tract infection, site not specified (principal) | CPT/HCPCS: 87077; 87086; 87186 ==

== ENCOUNTER 2021-11-07 21:26 | Inpatient (IN) | payer MEDICARE, MEDICAID, SELFPAY ==
[2021-11-07] VITALS (26 sets, daily range): BP systolic 103–135; BP diastolic 55–92; PULSE 89–101; RESP 23–38; TEMP 36.9–39.2; O2SAT 88–96
--- NOTE | 2021-11-07 21:22 | NUR.NOTE ---
Consent for treatment given by legal guardian Marquita Adam [phone].Nursing Note:
--- NOTE | 2021-11-07 21:30 | DI.CT_ITS ---
Exam(s) CT CHEST/ABD/PEL WO EXAM: CT CHEST/ABD/PEL WO CLINICAL HISTORY: vomiting, cough, fever. TECHNIQUE: Imaging Protocol: Axial computed tomography images with coronal and sagittal reformatted images were created and reviewed CONTRAST MATERIAL: Noncontrast COMPARISON: CT CT ABDOMEN PELVIS WO/W from 02/04/2021 CR,XR XR PORTABLE CHEST AP from 04/09/[address] CHEST/ABD/PEL W from 04/10/2021 FINDINGS: CHEST: Exam is limited by respiratory motion. Tracheobronchial tree: Patent where visualized. Mediastinum and Ira: No dominant adenopathy. Fluid filled esophagus. Small hiatal hernia. Pulmonary parenchyma: Severely limited evaluation due to respiratory motion. No gross large area of c onsolidation. Pleura: Chronic appearing small right pleural effusion. Pleural thickening. No pneumothorax. Lymph nodes: Within normal limits. Aorta: Thoracic portion non-dilated. Heart: Normal size. No pericardial effusion. Bones: Scoliosis and ankylosis. No lytic or blastic lesions. ABDOMEN: Liver: Normal density. No measurable mass. Gallbladder and biliary tract: Layering stones or sludge. No or dilation. Pancreas: Atrophic, no abnormal calcifications or inflammatory process. Spleen: Normal. Kidneys: Normal size, contour and axis. Nonobstructing stones right kidney. No obstructive uropathy. No masses seen. Adrenal glands: No masses seen. Aorta: Abdominal portion non-dilated. Lymph nodes: Within normal limits. Soft tissues: Small fatty containing umbilical hernia and left fatty inguinal hernia PELVIS: Bladder: Minimally distended. Circumferential wall thickening. No stones.. Bowel: Limited evaluation due to motion. Large quantity of stool. Mild diverticulosis. Fluid seen in the stomach. No obstruction or bowel wall thickening. Peritoneal cavity: No ascites, collection or mesenteric inflammatory response. Bones: Chronic hip deformities. Spinal ankylosis. Reproductive organs: Etgj-wy-picusgxdup enlarged prostate. IMPRESSION: Limited exam secondary to motion. Chronic appearing small right pleural effusion. No aspirated contents visible in tracheobronchial jasmin e. Small hiatal hernia fluid-filled esophagus, suspicious for reflux. Nonobstructing right renal calculi. RADIATION DOSE DELIVERED: 1,874.55mGy.cm Total DLP DATA REPOSITORY: All CT scans at this facility are submitted to the National Radiology Data Registry (NRDR) Dose Index Registry (DIR) with the [employer] (A[employer]). RADIATION OPTIMIZATION: All CT scans at this facility use at least one of these dose optimization te chniques: automated exposure control; mA and/or kV adjustment per patient size (includes targeted exa ms where dose is matched to clinical indication); or iterative reconstruction.
[2021-11-07] MEDS: Acetaminophen 650 MG SUPP (21:35)
--- NOTE | 2021-11-07 21:35 | W.ED.GENAD ---
Discharge Plan Disposition Patient Disposition: [facility] INPATIENT Condition: Stable Discharge Details Clinical Impression: Aspiration pneumonia, Fever, Acute UTI Primary Care Provider: Starr Llamas ED Provider: Everett Galloway Home Meds and New Rx's Prescriptions: No Action carbamide peroxide [Debrox] 6.5 % drops 5 drp otic (ear) DAILY PRNRF: 0 [employer] Thick-It Powder PO PRNRF: 0 fluticasone propionate 50 mcg/actuation spray,suspension 2 spray intranasal DAILY RF: 0 Toviaz 4 mg tablet extended release 24 hr 4 mg PO DAILY RF: 0 polyethylene glycol 3350 17 gram/dose powder 17 gm PO HS RF: 0 aspirin [Adult Low Dose Aspirin] 81 mg tablet,delayed release (DR/EC) 81 mg PO DAILY RF: 0 Ocuvite Adult 50 Plus 250-5-1 mg capsule 1 cap PO DAILY RF: 0 cholecalciferol (vitamin D3) 25 mcg (1,000 unit) tablet 25 mcg PO DAILY RF: 0 omeprazole 20 mg capsule,delayed release(DR/EC) 20 mg PO DAILY RF: 0 tamsulosin 0.4 mg capsule 0.4 mg PO BID RF: 0 metformin 500 mg tablet extended release 24 hr 500 mg PO DAILY RF: 0 loratadine 10 mg Tablet 10 mg PO DAILY RF: 0 citalopram 20 mg tablet 30 mg PO DAILY RF: 0 calcium polycarbophil [FiberCon] 625 mg Tablet 1,250 mg PO BID RF: 0 calcium carbonate 500 mg calcium (1,250 mg) Tablet,Chewable 500 mg PO BID RF: 0 nystatin 100,000 unit/gram Powder 0 g topical BID Qty: 0 RF: 0 albuterol sulfate 2.5 mg /3 mL (0.083 %) solution for nebulization 2.5 mg inhalation DIRECTED PRNRF: 0 citalopram 20 mg tablet 20 mg PO DAILY RF: 0 Medical Decision Making This is a 61-year-old male with a past medical history of BPH, chronic condom cath, diabetes, GERD, previous kidney stones, Fowler, JU, spastic quadriplegia and cerebral palsy who presents today from his chronic care facility via EMS for evaluation of fever. Over the last few days the patient has had few episodes of intermittent vomiting which is atypical for the patient, as well as subsequent cough, then tonight he had fever of 105, and chills. Patient does admit to his intermittent episodes of vomiting but denies any other complaints. He denies any new abdominal pain, chest pain. He was noted to be at 90% on room air, and was started on 2 L by EMS. Patient denies any other complaints at this time. He did have a rapid Covid test at his facility, and this was negative. Exam demonstrates clear lung sounds, no wheezes or rhonchi however he does demonstrate audible wheeze externally which is difficult to know if this is his baseline or not. Abdomen is nontender, no clear signs of infection, however with his cough and recent vomiting episodes I would be surprised if there is a component of aspiration pneumonia. Patient is notably febrile, we will start Ofirmev. Heart rate slightly elevated, we will give a mild fluid bolus, but is vomiting and cough and his difficulty with movement and positioning we will get a CT scan of the chest and abdomen to evaluate for pneumonia and other potential etiology intra-abdominally. Will monitor closely and reassess. Suspect admission will be needed. We will start broad-spectrum antibiotic. 11:25 PM Laboratory work-up is recurrent turned, patient does demonstrate an elevated white count at 18, elevated lactate at 3.7. Urinalysis shows evidence of infection, CT of the chest shows evidence of mild aspiration pneumonia. Patient's vital signs have remained stable here in the ED. Patient would benefit from admission. Discussed the case with his caregiver and she agrees plan. Discussed the case with the hospitalist Dr. Fernandez and he agrees with the assessment and plan. I have extensively reviewed the treatment plan with the patient. I have addressed all patient concerns at this time. I have also discussed the plan with the admitting physician and they agree with the current assessment and plan and have agreed to assume responsibility for the patient. All parties demonstrate verbal understanding and agreement with our assessment and plan at this time. The documentation in this chart was dictated using [employer] dictation software. Please excuse any dictation errors. FINDINGS: Thyroid: The visualized thyroid gland is unremarkable. Lungs: Respiratory motion limits the tracheobronchial assessment. No gross aspirated bronchial content is appreciated. There is patchy airspace disease in the right lung base which could represent pneumonia or atelectasis. No gross pulmonary nodules or mass lesions are identified although respiratory motion limits sensitivity. Pleural spaces: Small to moderate right-sided pleural effusion with pleural thickening, mildly increased from 04/10/2021. Consider the possibility of empyema. Postcontrast CT may be helpful to assess for pleural enhancement. No pneumothorax. Heart: Heart size normal. Pulmonary arteries: The pulmonary arteries demonstrate no gross abnormality. Aorta: The aorta is unremarkable. No mediastinal hematoma. Lymph nodes: No supraclavicular or axillary adenopathy. No mediastinal or hilar adenopathy. Diaphragm: Small hiatal hernia. Fluid distension of the mid to proximal esophagus suggesting gastroesophageal reflux. Bones/joints: No acute osseous abnormalities are identified. Extensive thoracolumbar ankylosis. Soft tissues: Soft tissues of the thoracic wall demonstrate no acute abnormality. IMPRESSION: 1. Mild airspace disease in the right lung base which could represent pneumonia or atelectasis. No gross tracheobronchial aspirated content, although respiratory motion limits the bronchial assessment, particularly in the bases. Cannot exclude aspiration pneumonia. 2. Small to moderate right-sided pleural effusion slightly increased from 04/10/2021. Question mild associated pleural thickening, cannot exclude empyema, consider postcontrast CT for greater specificity. 3. Small hiatal hernia with moderate fluid in the esophagus suggesting gastroesophageal reflux. FINDINGS: Diaphragm: Question small hiatal hernia. Moderate food and liquid content in the stomach. Liver: Normal contour. No mass lesions. No intrahepatic biliary ductal dilatation. Gallbladder and bile ducts: Layering sludge or small stones in the gallbladder with no CT signs of cholecystitis or biliary obstruction. Pancreas: Moderate pancreatic atrophy without acute abnormality. No pancreatic ductal dilatation. Spleen: Normal. No splenomegaly. Adrenal glands: Normal. No adrenal mass. Kidneys and ureters: No acute abnormalities. No hydronephrosis or hydroureter. There are 3 nonobstructive right renal stones measuring between 3 mm and 5 mm in size. Stomach and bowel: The small bowel is nondilated with no gross abnormality. There is a moderate amount of stool distributed throughout the colon suggesting constipation. Mild diverticulosis involving the distal colon without evidence of acute diverticulitis. Appendix: The appendix is not identified. No secondary signs of appendicitis. Intraperitoneal space: No free fluid or air. Vasculature: No acute process. No abdominal aortic aneurysm. Lymph nodes: No adenopathy. Urinary bladder: Diffuse moderate urinary bladder wall thickening measuring up to 11 mm in thickness. The bladder is largely contracted. This is nonspecific and could represent changes of chronic neurogenic bladder, chronic cystitis or possibly neoplasm. Consider consult and cystoscopic assessment as clinically indicated. Reproductive: Moderately enlarged prostate. Bones/joints: Osteopenia. Severe right and moderate left chronic arthropathy in the hips. Chronic SI joint ankylosis . Extensive lumbosacral ankylosis. Soft tissues: Small fatty umbilical hernia and small bilateral fatty inguinal hernias. No evidence of associated bowel herniation or strangulation. IMPRESSION: 1. Diffuse moderate urinary bladder wall thickening which is nonspecific. It might represent chronic changes of neurogenic bladder in a quadriplegic, or changes of chronic cystitis. Neoplastic wall thickening is not excluded, consider consult and cystoscopic assessment as clinically indicated. 2. Small gallstones or sludge in the gallbladder with no CT signs of cholecystitis or biliary obstruction. 3. Small nonobstructive renal stones. No ureteral stones or hydronephrosis. 4. Moderate colonic stool suggesting constipation. 5. Mild diverticulosis involving the distal colon without evidence of acute diverticulitis. 6. Additional nonemergent findings detailed above. Thank you for allowing us to participate in the care of your patient. Dictated and Authenticated by: Vincent Colon MD 11/07/2021 11:21 PM Eastern Time ([place] & [place]) HPI General Date/Time Provider Initiated Documentation: 11/07/21 21:35. HPI Narrative: This is a 61-year-old male with a past medical history of BPH, chronic condom cath, diabetes, GERD, previous kidney stones, Fowler, JU, spastic quadriplegia and cerebral palsy who presents today from his chronic care facility via EMS for evaluation of fever. Over the last few days the patient has had few episodes of intermittent vomiting which is atypical for the patient, as well as subsequent cough, then tonight he had fever of 105, and chills. Patient does admit to his intermittent episodes of vomiting but denies any other complaints. He denies any new abdominal pain, chest pain. He was noted to be at 90% on room air, and was started on 2 L by EMS. Patient denies any other complaints at this time. He did have a rapid Covid test at his facility, and this was negative. Related Data Home Medications Medication Instructions Recorded Confirmed aspirin 81 mg tablet,delayed 81 mg PO DAILY 12/12/19 11/07/21 release cholecalciferol (vitamin D3) 25 25 mcg PO DAILY 12/12/19 11/07/21 mcg (1,000 unit) tablet omeprazole 20 mg capsule,delayed 20 mg PO DAILY 12/12/19 11/07/21 release polyethylene glycol 3350 17 17 gm PO HS 12/12/19 11/07/21 gram/dose oral powder tamsulosin 0.4 mg capsule 0.4 mg PO BID cap 12/12/19 11/07/21 vit C,E,zinc,copper-[id number] 250 1 cap PO DAILY 12/12/19 04/10/21 mg-lutein 5 mg-zeaxanthin 1 mg capsule fesoterodine 4 mg tablet,extended 4 mg PO DAILY 04/09/20 11/07/21 release 24 hr carbamide peroxide 6.5 % ear drops 5 drp OTIC (EAR) DAILY PRN 01/21/21 11/07/21 fluticasone propionate 50 2 spray INTRANASAL DAILY 01/21/21 11/07/21 mcg/actuation nasal spray,suspension metformin 500 mg tablet,extended 500 mg PO DAILY tab 01/21/21 11/07/21 release 24 hr starch (thickening) pwd PO PRN 01/21/21 02/10/21 calcium carbonate 500 mg PO BID 04/10/21 04/10/21 calcium polycarbophil [FiberCon] 1,250 mg PO BID 04/10/21 11/07/21 citalopram 30 mg PO DAILY 04/10/21 11/07/21 loratadine 10 mg PO DAILY 04/10/21 11/07/21 nystatin 0 g TOPICAL BID #0 g 04/13/21 albuterol sulfate 2.5 mg INHALATION DIRECTED PRN 11/07/21 11/07/21 citalopram 20 mg PO DAILY 11/07/21 11/07/21 Previous Rx's Medication Instructions Recorded nystatin 0 g TOPICAL BID #0 g 04/13/21 Allergies Allergy/AdvReac Type Severity Reaction Status Date / Time ciprofloxacin Allergy Severe Wheezing Unverified 11/07/21 22:26 wool Allergy Unverified 11/07/21 22:26 kapok Allergy Uncoded 11/07/21 22:26 General URSULA: 2 Review of Systems All systems reviewed & are unremarkable except as noted in HPI and below PFSH All Active Problems (Updated 11/07/21 @ 23:24 by Everett Galloway DO) Aspiration pneumonia (Acute) Fever (Acute) Acute UTI (Acute) Aspiration pneumonia (Acute) Pyelonephritis, acute (Acute) Fever (Acute) Allergic reaction caused by a drug (Acute) Nephrolithiasis (Chronic) Bladder outlet obstruction (Acute) Urinary incontinence (Acute) OAB (overactive bladder) (Acute) Chronic constipation (Acute) CP (cerebral palsy), spastic, quadriplegic (Chronic) Medical History Anxiety BPH (benign prostatic hyperplasia) Cholelithiasis without obstruction Colpocephaly Diabetes Diverticular disease Exotropia GERD (gastroesophageal reflux disease) Hip subluxation Intellectual disability Kidney papillary necrosis Left inguinal hernia FOWLER (nonalcoholic steatohepatitis) Obesity Obstructive sleep apnea Optic atrophy Osteoporosis Recurrent UTI Umbilical hernia Surgical History No significant past surgical history Family History Father , PNA No problems noted. Mother , SMOKING No problems noted. Brother , MVA No problems noted. Sister Substance abuse Social History Smoking/Tobacco Use Status: Never Smoking risk assessment performed?: Yes Alcohol Intake: never Drug use: Never Household members: other Housing: assisted living facility current occupation: Disabled Additional Social history: Lives at [place] since Oct 2019. Guardian Mouna Landis since ~2013. Exam Narrative Exam Narrative: 1.Const: Well-nourished, Well-developed, appearing stated age 2.Eyes: PERRL, no conjunctival injection, and symmetrical lids. 3.ENT: Atraumatic external nose and ears. Moist MM. Neck: Symmetric, trachea midline, No thyromegaly. 4.CVS: +S1/S2, No murmurs or gallops. Peripheral pulses 2+ and equal in all extremities. Brisk capillary refill in all extremities. 5.RESP: Unlabored respiratory effort. Clear to auscultation bilaterally. No wheezes rales or rhonchi 6.GI: Soft, nondistended, nontender. He has a small umbilical hernia which is easily reducible and nontender. Genital exam is unremarkable. No decubitus ulcer on the role. 7.MSK: Normocephalic/Atraumatic, Extremities w/o deformity or ttp No cyanosis or clubbing, minimal movement of the extremities. 8.Skin: Warm, Dry. No rashes or lesions. No evidence of decubitus ulcer 9.Neuro: data services developer II-XII grossly intact. Sensation grossly intact, patient is at his baseline 10.Psych: (AAO) x2. Appropriate mood and affect Course Lab/Test Results Lab/Test Results: 11/07/21 21:22 Blood Blood Culture - Pending 11/07/21 21:22 Blood Blood Culture - Pending
[2021-11-07 21:49] LABS: Source Nasal/Nares
[2021-11-07 22:02] LABS: Abs Immature Grans 0.12 10^3/uL (0.0-0.06); Absolute Basophil Count 0.07 10^3/uL (0.0-0.2); Absolute Eosinophil Count 0.13 10^3/uL (0.0-0.7); Absolute Monocyte Count 1.31 10^3/uL (0.1-0.8); Absolute Neutrophil Count 15.97 10^3/uL (1.2-6.7); BE (Venous) -1 mmol/L (-2-3); Basophils % 0.4; Eosinophils % 0.7; HCO3 (Venous) 23 mmol/L (23-28); HCT 43.3 % (40.0-50.0); HGB 13.6 g/dL (13.5-17.5); Immature Grans % 0.6; Lymphocytes % 5.9; MCH 24.6 pg (27.0-33.0); MCHC 31.4 % (32.0-36.0); MCV 78.4 fL (80-95); MPV 9.5 fL (8.0-11.0); Neutrophils % 85.4; Nucleated RBC 0 %; O2 Sat (Venous) 93 %; Platelet Count 300 10^3/uL (130-400); RBC 5.52 10^6/uL (4.36-5.78); RDW 17.3 % (11.8-14.1); RDW-SD 49.3 fL; TCO2 (Venous) 20 mmol/L (24-29); pCO2 (Venous) 32 mmHg (41-51); pH (Venous) 7.46 (7.31-7.41); pO2 (Venous) 59 mmHg
[2021-11-07 22:06] LABS: Lactate 3.7 mmol/L (0.6-1.4)
[2021-11-07] MEDS: Lidocaine 2% Jelly 6 ML SYR (22:12)
[2021-11-07 22:15] LABS: ALT 19 U/L (16-63); AST 12 U/L (15-37); Albumin 3.3 g/dL (3.4-5.0); Alkaline Phosphatase 81 U/L (46-116); Anion Gap 12.9 mmol/L (3-11); BUN 12 mg/dL (7-18); Bilirubin, Total 0.4 mg/dL (0.2-1.0); CO2 22.1 mmol/L (21.0-32.0); CREATININE 0.9 mg/dL (0.70-1.30); Calcium 8.8 mg/dL (8.5-10.1); Chloride 98 mmol/L (98-107); Glucose 166 mg/dL (74-106); Lipase 62 U/L (73-393); Potassium 4.2 mmol/L (3.5-5.1); Sodium 133 mmol/L (136-145); Total Protein 8.1 g/dL (6.4-8.2)
[2021-11-07] MEDS: Ondansetron 4 MG/2 ML VIAL (22:15)
[2021-11-07 22:27] LABS: COVID-19 PCR Negative (Negative)
[2021-11-07 22:36] LABS: Bilirubin Negative (Negative); Blood Moderate (Negative); Clarity Sl Cloudy (Clear); Glucose Negative (Negative); Ketones Trace mg/dL (Negative); Leukocyte Esterase Small (Negative); Nitrite Positive (Negative); Urobilinogen 0.2 EU/dL (Up TO 0.2)
[2021-11-07 22:44] LABS: Bacteria Moderate HPF (Negative); C & S Indicated? Yes; Casts Negative LPF (Negative); Crystals Negative HPF (Negative); Epithelial Cells Few HPF (Negative); Mucus Negative (Negative)
[2021-11-07] MEDS: Normal Saline 500 ML IV (22:56)
[2021-11-07] MEDS: PIPERACILLIN/TAZO 3.375 GM in Normal Saline 50 ML IVPB (22:57)
--- NOTE | 2021-11-07 23:21 | HPE_ITS ---
Date of service: 11/07/21 Time of Service: 23:23 Assessment and Plan Assessment and plan (1) Fever: Status: Acute Assessment and plan: Episode of vomiting followed by cough and fever, along with CT findings, indicates likely pneumonia, though concurrent UTI possible. Current regimen of Vanco/Zosyn seems to be reasonable empiric coverage pending culture results. Hemodynamics satisfactory at present, but will trend out lactate. Oxygenation satisfactory. Reviewed advance directives, requests Full Code. History of Present Illness History of Present Illness Chief Complaint: fever Narrative: 61 male with h/o cerebral palsy, spastic quadriplegia, resident of [facility] -- 2 days [facility] had episode of vomiting. Fine next day, but on day of admission had cough, chills and temp to 105. Sent to ER for evaluation. In ER findings of note for initial O2 sats low 90s (one of 88) and temp to 39.2; white count 18 with lactate 3.7; pyuria (10-20 WBC); and CT chest showing patchy airspace disease RLL along with chronic but somewhat progressive effusion, cannot r/o empyema. COVID is negative. Cultures obtained and patient given Vanco and Zosyn. I was asked to evaluate for admission. Patient denies CP or SOB, denies dysuria or abdominal/flank pain. Review of Systems All systems reviewed & are unremarkable except as noted in HPI and below PFSH All Active Problems Aspiration pneumonia (Acute) Fever (Acute) Acute UTI (Acute) Aspiration pneumonia (Acute) Pyelonephritis, acute (Acute) Fever (Acute) Allergic reaction caused by a drug (Acute) Nephrolithiasis (Chronic) Bladder outlet obstruction (Acute) Urinary incontinence (Acute) OAB (overactive bladder) (Acute) Chronic constipation (Acute) CP (cerebral palsy), spastic, quadriplegic (Chronic) Medical History Anxiety BPH (benign prostatic hyperplasia) Cholelithiasis without obstruction Colpocephaly Diabetes Diverticular disease Exotropia GERD (gastroesophageal reflux disease) Hip subluxation Intellectual disability Kidney papillary necrosis Left inguinal hernia TAPIA (nonalcoholic steatohepatitis) Obesity Obstructive sleep apnea Optic atrophy Osteoporosis Recurrent UTI Umbilical hernia Surgical History No significant past surgical history Family History Father , PNA No problems noted. Mother , SMOKING No problems noted. Brother , MVA No problems noted. Sister Substance abuse Social History Smoking/Tobacco Use Status: Never Smoking risk assessment performed?: Yes Alcohol Intake: never Drug use: Never Substance use type: does not use Household members: other Housing: assisted living facility current occupation: Disabled Do you feel safe at home: Yes Do you feel safe in your relationship?: Yes Additional Social history: Lives at [facility] since Oct 2019. Guardian Mouna Landis since . Meds Allergies and Home Medications Allergies Allergy/AdvReac Type Severity Reaction Status Date / Time ciprofloxacin Allergy Severe Wheezing Unverified 11/07/21 22:26 wool Allergy Unverified 11/07/21 22:26 kapok Allergy Uncoded 11/07/21 22:26 Home Medications Medication Instructions Recorded Confirmed Type aspirin 81 mg tablet,delayed 81 mg PO DAILY 12/12/19 11/07/21 History release cholecalciferol (vitamin D3) 25 25 mcg PO DAILY 12/12/19 11/07/21 History mcg (1,000 unit) tablet omeprazole 20 mg capsule,delayed 20 mg PO DAILY 12/12/19 11/07/21 History release polyethylene glycol 3350 17 17 gm PO HS 12/12/19 11/07/21 History gram/dose oral powder tamsulosin 0.4 mg capsule 0.4 mg PO BID cap 12/12/19 11/07/21 History vit C,E,zinc,copper-wieht7w 250 1 cap PO DAILY 12/12/19 04/10/21 History mg-lutein 5 mg-zeaxanthin 1 mg capsule fesoterodine 4 mg tablet,extended 4 mg PO DAILY 04/09/20 11/07/21 History release 24 hr carbamide peroxide 6.5 % ear drops 5 drp OTIC (EAR) DAILY PRN 01/21/21 11/07/21 History fluticasone propionate 50 2 spray INTRANASAL DAILY 01/21/21 11/07/21 History mcg/actuation nasal spray,suspension metformin 500 mg tablet,extended 500 mg PO DAILY tab 01/21/21 11/07/21 History release 24 hr starch (thickening) pwd PO PRN 01/21/21 02/10/21 History calcium carbonate 500 mg PO BID 04/10/21 04/10/21 History calcium polycarbophil [FiberCon] 1,250 mg PO BID 04/10/21 04/10/21 History citalopram 30 mg PO DAILY 04/10/21 04/10/21 History loratadine 10 mg PO DAILY 04/10/21 11/07/21 History nystatin 0 g TOPICAL BID #0 g 04/13/21 Rx albuterol sulfate 2.5 mg INHALATION DIRECTED PRN 11/07/21 11/07/21 History citalopram 20 mg PO DAILY 11/07/21 11/07/21 History Exam Narrative Exam Narrative: 108/50, 93; 36.9 (max 39.2), 32-38, 94% RA currently. HEENT atraumatic; neck supple; lungs appear clear, there is audible wheeze grossly but this appears to be more of upper airway origin; heart RRR; abdomen distended and tympanitic, but soft and nontender; extremities w/o edema; neuro ox3, lucid, spastic quadriplegia Results Labs Result diagrams: 11/07/21 21:55 11/07/21 21:55 Labs: Laboratory Results - last 24 hr 11/07/21 11/07/21 11/07/21 21:45 21:55 21:55 WBC RBC Hgb Hct MCV MCH MCHC RDW Plt Count MPV Immature Gran % Neutrophils % Lymphocytes % Monocytes % Eosinophils % Basophils % Nucleated RBC % Absolute Neutrophils Absolute Lymphocytes Absolute Monocytes Absolute Eosinophils Absolute Basophils VBG pH VBG pCO2 VBG pO2 VBG HCO3 VBG Total CO2 VBG O2 Saturation VBG Base Excess VBG Lactate 3.7 H* Sodium 133 L Potassium 4.2 Chloride 98 Carbon Dioxide 22.1 Anion Gap 12.9 H BUN 12 Creatinine 0.9 Estimated GFR/1.73 m2 >= 60.00 Glucose 166 H Calcium 8.8 Total Bilirubin 0.4 AST 12 L ALT 19 Alkaline Phosphatase 81 Total Protein 8.1 Albumin 3.3 L Lipase 62 Urine Color Urine Clarity Urine pH Ur Specific [place] Urine Protein Urine Ketones Urine Blood Urine Nitrite Urine Bilirubin Urine Urobilinogen Ur Leukocyte Esterase Urine RBC Urine WBC Ur Epithelial Cells Urine Crystals Urine Bacteria Urine Casts Urine Mucus Ur Culture Indicated? Urine Glucose COVID-19 Source Nasal/Nares SARS-CoV-2 (PCR) Negative 11/07/21 11/07/21 11/07/21 21:55 21:55 22:24 WBC 18.70 H RBC 5.52 Hgb 13.6 Hct 43.3 MCV 78.4 L MCH 24.6 L MCHC 31.4 L RDW 17.3 H Plt Count 300 MPV 9.5 Immature Gran % 0.6 Neutrophils % 85.4 Lymphocytes % 5.9 Monocytes % 7.0 Eosinophils % 0.7 Basophils % 0.4 Nucleated RBC % 0 Absolute Neutrophils 15.97 H Absolute Lymphocytes 1.10 L Absolute Monocytes 1.31 H Absolute Eosinophils 0.13 Absolute Basophils 0.07 VBG pH 7.46 H VBG pCO2 32 L VBG pO2 59 VBG HCO3 23 VBG Total CO2 20 L VBG O2 Saturation 93 VBG Base Excess -1 VBG Lactate Sodium Potassium Chloride Carbon Dioxide Anion Gap BUN Creatinine Estimated GFR/1.73 m2 Glucose Calcium Total Bilirubin AST ALT Alkaline Phosphatase Total Protein Albumin Lipase Urine Color Yellow Urine Clarity Sl Cloudy Urine pH 6.0 Ur Specific [place] 1.020 Urine Protein Trace H Urine Ketones Trace H Urine Blood Moderate H Urine Nitrite Positive H Urine Bilirubin Negative Urine Urobilinogen 0.2 Ur Leukocyte Esterase Small H Urine RBC 5-10 H Urine WBC 10-20 H Ur Epithelial Cells Few Urine Crystals Negative Urine Bacteria Moderate Urine Casts Negative Urine Mucus Negative Ur Culture Indicated? Yes Urine Glucose Negative COVID-19 Source SARS-CoV-2 (PCR) Last Vital Signs Temp 36.9 C 11/07/21 23:01 Pulse 93 H 11/07/21 23:01 Resp 38 H 11/07/21 23:10 BP 108/60 11/07/21 23:01 Pulse Ox 94 11/07/21 23:10
--- NOTE | 2021-11-07 23:21 | DI.VRAD_ITS ---
PROCEDURE INFORMATION: Exam: CT Chest Without Contrast; Diagnostic Exam date and time: 11/07/2021 9:32 PM Age: 61 years old Clinical indication: Fever and vomiting; Patient HX: Vomiting, fever, cough; Additional info: Concern for aspiration pneumonia. Cp, quadriplegic TECHNIQUE: Imaging protocol: Diagnostic computed tomography of the chest without contrast. Total images: 2369 Radiation optimization: All CT scans at this facility use at least one of these dose optimization techniques: automated exposure control; mA and/or kV adjustment per patient size (includes targeted exams where dose is matched to clinical indication); or iterative reconstruction. COMPARISON: CT CHEST/ABD/PEL W 04/10/2021 12:52 AM FINDINGS: Thyroid: The visualized thyroid gland is unremarkable. Lungs: Respiratory motion limits the tracheobronchial assessment. No gross aspirated bronchial content is appreciated. There is patchy airspace disease in the right lung base which could represent pneumonia or atelectasis. No gross pulmonary nodules or mass lesions are identified although respiratory motion limits sensitivity. Pleural spaces: Small to moderate right-sided pleural effusion with pleural thickening, mildly increased from 04/10/2021. Consider the possibility of empyema. Postcontrast CT may be helpful to assess for pleural enhancement. No pneumothorax. Heart: Heart size normal. Pulmonary arteries: The pulmonary arteries demonstrate no gross abnormality. Aorta: The aorta is unremarkable. No mediastinal hematoma. Lymph nodes: No supraclavicular or axillary adenopathy. No mediastinal or hilar adenopathy. Diaphragm: Small hiatal hernia. Fluid distension of the mid to proximal esophagus suggesting gastroesophageal reflux. Bones/joints: No acute osseous abnormalities are identified. Extensive thoracolumbar ankylosis. Soft tissues: Soft tissues of the thoracic wall demonstrate no acute abnormality. IMPRESSION: 1. Mild airspace disease in the right lung base which could represent pneumonia or atelectasis. No gross tracheobronchial aspirated content, although respiratory motion limits the bronchial assessment, particularly in the bases. Cannot exclude aspiration pneumonia. 2. Small to moderate right-sided pleural effusion slightly increased from 04/10/2021. Question mild associated pleural thickening, cannot exclude empyema, consider postcontrast CT for greater specificity. 3. Small hiatal hernia with moderate fluid in the esophagus suggesting gastroesophageal reflux. PROCEDURE INFORMATION: Exam: CT Abdomen And Pelvis Without Contrast Exam date and time: 11/07/2021 9:32 PM Age: 61 years old Clinical indication: Fever and vomiting; Patient HX: Vomiting, fever, cough; Additional info: Concern for aspiration pneumonia. Cp, quadriplegic TECHNIQUE: Imaging protocol: Computed tomography of the abdomen and pelvis without contrast. Radiation optimization: All CT scans at this facility use at least one of these dose optimization techniques: automated exposure control; mA and/or kV adjustment per patient size (includes targeted exams where dose is matched to clinical indication); or iterative reconstruction. COMPARISON: CT CHEST/ABD/PEL W 04/10/2021 12:52 AM FINDINGS: Diaphragm: Question small hiatal hernia. Moderate food and liquid content in the stomach. Liver: Normal contour. No mass lesions. No intrahepatic biliary ductal dilatation. Gallbladder and bile ducts: Layering sludge or small stones in the gallbladder with no CT signs of cholecystitis or biliary obstruction. Pancreas: Moderate pancreatic atrophy without acute abnormality. No pancreatic ductal dilatation. Spleen: Normal. No splenomegaly. Adrenal glands: Normal. No adrenal mass. Kidneys and ureters: No acute abnormalities. No hydronephrosis or hydroureter. There are 3 nonobstructive right renal stones measuring between 3 mm and 5 mm in size. Stomach and bowel: The small bowel is nondilated with no gross abnormality. There is a moderate amount of stool distributed throughout the colon suggesting constipation. Mild diverticulosis involving the distal colon without evidence of acute diverticulitis. Appendix: The appendix is not identified. No secondary signs of appendicitis. Intraperitoneal space: No free fluid or air. Vasculature: No acute process. No abdominal aortic aneurysm. Lymph nodes: No adenopathy. Urinary bladder: Diffuse moderate urinary bladder wall thickening measuring up to 11 mm in thickness. The bladder is largely contracted. This is nonspecific and could represent changes of chronic neurogenic bladder, chronic cystitis or possibly neoplasm. Consider consult and cystoscopic assessment as clinically indicated. Reproductive: Moderately enlarged prostate. Bones/joints: Osteopenia. Severe right and moderate left chronic arthropathy in the hips. Chronic SI joint ankylosis . Extensive lumbosacral ankylosis. Soft tissues: Small fatty umbilical hernia and small bilateral fatty inguinal hernias. No evidence of associated bowel herniation or strangulation. IMPRESSION: 1. Diffuse moderate urinary bladder wall thickening which is nonspecific. It might represent chronic changes of neurogenic bladder in a quadriplegic, or changes of chronic cystitis. Neoplastic wall thickening is not excluded, consider consult and cystoscopic assessment as clinically indicated. 2. Small gallstones or sludge in the gallbladder with no CT signs of cholecystitis or biliary obstruction. 3. Small nonobstructive renal stones. No ureteral stones or hydronephrosis. 4. Moderate colonic stool suggesting constipation. 5. Mild diverticulosis involving the distal colon without evidence of acute diverticulitis. 6. Additional nonemergent findings detailed above. Dictated and Authenticated by: Vincent Colon MD. Ordering:ELENI Floyd MD
[2021-11-08] VITALS (15 sets, daily range): BP systolic 82–114; BP diastolic 50–74; PULSE 72–92; RESP 4–35; TEMP 37–38.2; O2SAT 91–99
[2021-11-08] MEDS: Albuterol/Ipratropium 3 ML UPD VIAL UPD ×5 (01:38→20:21)
[2021-11-08] MEDS: ACETAMINOPHEN 1,000 MG/100 ML BTL 400 MG IVPB (03:10)
[2021-11-08] MEDS: PIPERACILLIN/TAZO 3.375 GM in Normal Saline 50 ML IVPB ×4 (05:59→23:55)
[2021-11-08 07:09] LABS: HCT 40.9 % (40.0-50.0); HGB 13.2 g/dL (13.5-17.5); MCH 25.1 pg (27.0-33.0); MCHC 32.3 % (32.0-36.0); MCV 77.9 fL (80-95); MPV 9.9 fL (8.0-11.0); Platelet Count 226 10^3/uL (130-400); RBC 5.25 10^6/uL (4.36-5.78); RDW 17.7 % (11.8-14.1); RDW-SD 49.9 fL; WBC 21.12 10^3/uL (4.4-10.8)
[2021-11-08 07:15] LABS: Lactate 2.7 mmol/L (0.6-1.4)
[2021-11-08] MEDS: Loratidine 10 MG TAB PO (08:16)
[2021-11-08] MEDS: Aspirin E.C. 81 MG TABEC PO (08:16)
[2021-11-08] MEDS: Omeprazole 20 MG CAPCR PO (08:16)
[2021-11-08] MEDS: Tamsulosin 0.4 MG CAPCR PO ×2 (08:16→20:21)
[2021-11-08] MEDS: Citalopram 20 MG TAB PO (08:16)
[2021-11-08] MEDS: Fluticasone NASAL SPRAY 16 GM BTL NS (08:16)
--- NOTE | 2021-11-08 08:55 | INITIAL_ITS ---
- If Service Date Differs Date of service: 11/08/21 Time of Service: 08:55 Care Management Initial Assess REASON FOR HOSPITALIZATION:: Fever PAST MEDICAL HISTORY/PAST SURGICAL HISTORY:: All Active Problems . Aspiration pneumonia (Acute). Fever (Acute). Acute UTI (Acute). Aspiration pneumonia (Acute). Pyelonephritis, acute (Acute). Fever (Acute). Allergic reaction caused by a drug (Acute). Nephrolithiasis (Chronic). Bladder outlet obstruction (Acute). Urinary incontinence (Acute). OAB (overactive bladder) (Acute). Chronic constipation (Acute). CP (cerebral palsy), spastic, quadriplegic (Chronic). Medical History . Anxiety. BPH (benign prostatic hyperplasia). Cholelithiasis without obstruction. Colpocephaly. Diabetes. Diverticular disease. Exotropia. GERD (gastroesophageal reflux disease). Hip subluxation. Intellectual disability. Kidney papillary necrosis. Left inguinal hernia. TAPIA (nonalcoholic steatohepatitis). Obesity. Obstructive sleep apnea. Optic atrophy. Osteoporosis. Recurrent UTI. Umbilical hernia. Surgical History . No significant past surgical history PREVIOUS FUNCTIONAL STATUS/SOCIAL/FAMILY SUPPORTS:: Dimas lives at [facility] in [place]. He has a guardian, Mouna Landis. He has spastic quadriplegia with cerebral palsy and requires complete care. He is wheelchair bound and requires a olga lidia lift. CURRENT FUNCTIONAL STATUS:: Dimas was sitting up in bed when CM met with him. He smiled and was cooperative with conversation. When asked aboiut his family, Dimas stated that he has a brother and sister but that they are mad at him because he is moving. Dimas was unable to say where he was moving to or provide any other information. He did shared that he is unable to walk and uses a wheelchair. ADVANCE DIRECTIVES:: Not on file. Guardianship on file, Mouna Landis. Has patient been provided with info about the portal/API?: Yes Did the patient sign up for the portal?: No CODE STATUS:: Full Code INSURANCE COVERAGE / FINANCIAL ISSUES:: Medicare. Medicaid CURRENT HOME/COMMUNITY SERVICES/EQUIPMENT:: Dimas lives at [facility] and receives all of his care there. He is wheelchair bound. PRIMARY CARE PHYSICIAN:: Starr Llamas POTENTIAL DISCHARGE NEEDS:: Follow up with PCP and plan of care PATIENT/FAMILY EDUCATION NEEDS:: Review of discharge instructions, limitations, follow up plan, Ask Me Three TRANSPORTATION:: via wheelchair van PLAN:: Dimas will likley return to [facility] when he is medically cleared for discharge. He will follow up with his PCP and community supports and transport via wheelchair van with staff from the facility. CM will continue to support Dimas and assess for discharge needs.
[2021-11-08] MEDS: Nystatin POWDER 15 GM JAR TP ×3 (10:23→20:22)
[2021-11-08] MEDS: Insulin Aspart 300 UNITS/3 ML PEN SC ×4 (13:08→17:45)
[2021-11-08] MEDS: VANCOMYCIN/WATER (PEG) 1.25 GM/250 ML BAG IVPB (13:09)
--- NOTE | 2021-11-08 14:53 | PGE_ITS ---
Date of Service Date of service: 11/08/21 Time of Service: 14:55 Assessment and Plan Assessment and plan (1) Aspiration pneumonia: Start date: 11/08/21 Start time: 15:00 Status: Acute Assessment and plan: Patient vomited prior to presentation. this was most likely the source of his pneumonia On zosyn and vanco. Likely does not need vanco, will d/c demarcus, and downstep medications BC pending, continue to trend WBC, obtain procal and crp in am Qualifiers: Aspiration pneumonia type: unspecified Laterality: right Lung location: lower lobe of lung Qualified Code(s): J69.0 - Pneumonitis due to inhalation of food and vomit (2) Fever: Start date: 11/08/21 Start time: 15:00 Status: Acute Assessment and plan: as above last fever at 0101 this am. Qualifiers: Fever type: due to other condition Qualified Code(s): R50.81 - Fever presenting with conditions classified elsewhere (3) CP (cerebral palsy), spastic, quadriplegic: Start date: 11/08/21 Start time: 15:00 Status: Chronic Assessment and plan: Continue home medication, help with feeding (4) Umbilical hernia: Start date: 11/08/21 Start time: 15:00 Status: Chronic Assessment and plan: Easily able to push back in. No concern for strangulation Qualifiers: Obstruction and gangrene presence: without obstruction or gangrene Qualified Code(s): K42.9 - Umbilical hernia without obstruction or gangrene (5) DVT prophylaxis: Start date: 11/08/21 Start time: 15:00 Status: Acute Assessment and plan: Subcu heparing (6) Discharge planning issues: Start date: 11/08/21 Start time: 15:48 Status: Acute Assessment and plan: Back to facility when medically ready Discussed with dr. keene Subjective Subjective Patient reports: other Interval history since last seen: Patient nonverbal. Lying in bed. Does not appear to be in any distress. Exam Const General: cooperative, no acute distress, frail appearing and ill appearing chronically Nutritional Appearance: obese Orientation: alert, awake and other (nonverbal) Limitations: other limitations HENMT Head: normocephalic and atraumatic Neck Neck: no lymphadenopathy Lymphatic: no lymphadenopathy noted Resp Effort & Inspection: not able to speak in complete sentences Auscultation: wheezes expiratory wheezes, inspiratory wheezes and scattered wheezes Cardio Jugular venous pressure: no JVD Rate: regular rate Rhythm: regular rhythm GI Inspection: abnormal to inspection, obesity and other (umbical hernia) Palpation: soft Auscultation: normal bowel sounds Back/Spine/Pelvis Thoracic/Lumbar Spine: kyphosis (severe, ) Objective Last Vital Signs Temp 37.1 C 11/08/21 09:57 Pulse 82 11/08/21 09:57 Resp 18 11/08/21 09:57 BP 104/64 11/08/21 12:28 Pulse Ox 99 11/08/21 09:57 Laboratory Results - last 24 hr 11/07/21 11/07/21 11/07/21 21:45 21:55 21:55 WBC RBC Hgb Hct MCV MCH MCHC RDW Plt Count MPV Immature Gran % Neutrophils % Lymphocytes % Monocytes % Eosinophils % Basophils % Nucleated RBC % Absolute Neutrophils Absolute Lymphocytes Absolute Monocytes Absolute Eosinophils Absolute Basophils VBG pH VBG pCO2 VBG pO2 VBG HCO3 VBG Total CO2 VBG O2 Saturation VBG Base Excess VBG Lactate 3.7 H* Sodium 133 L Potassium 4.2 Chloride 98 Carbon Dioxide 22.1 Anion Gap 12.9 H BUN 12 Creatinine 0.9 Estimated GFR/1.73 m2 >= 60.00 Glucose 166 H Calcium 8.8 Total Bilirubin 0.4 AST 12 L ALT 19 Alkaline Phosphatase 81 Total Protein 8.1 Albumin 3.3 L Lipase 62 Urine Color Urine Clarity Urine pH Ur Specific [place] Urine Protein Urine Ketones Urine Blood Urine Nitrite Urine Bilirubin Urine Urobilinogen Ur Leukocyte Esterase Urine RBC Urine WBC Ur Epithelial Cells Urine Crystals Urine Bacteria Urine Casts Urine Mucus Ur Culture Indicated? Urine Glucose COVID-19 Source Nasal/Nares SARS-CoV-2 (PCR) Negative 11/07/21 11/07/21 11/07/21 21:55 21:55 22:24 WBC 18.70 H RBC 5.52 Hgb 13.6 Hct 43.3 MCV 78.4 L MCH 24.6 L MCHC 31.4 L RDW 17.3 H Plt Count 300 MPV 9.5 Immature Gran % 0.6 Neutrophils % 85.4 Lymphocytes % 5.9 Monocytes % 7.0 Eosinophils % 0.7 Basophils % 0.4 Nucleated RBC % 0 Absolute Neutrophils 15.97 H Absolute Lymphocytes 1.10 L Absolute Monocytes 1.31 H Absolute Eosinophils 0.13 Absolute Basophils 0.07 VBG pH 7.46 H VBG pCO2 32 L VBG pO2 59 VBG HCO3 23 VBG Total CO2 20 L VBG O2 Saturation 93 VBG Base Excess -1 VBG Lactate Sodium Potassium Chloride Carbon Dioxide Anion Gap BUN Creatinine Estimated GFR/1.73 m2 Glucose Calcium Total Bilirubin AST ALT Alkaline Phosphatase Total Protein Albumin Lipase Urine Color Yellow Urine Clarity Sl Cloudy Urine pH 6.0 Ur Specific [place] 1.020 Urine Protein Trace H Urine Ketones Trace H Urine Blood Moderate H Urine Nitrite Positive H Urine Bilirubin Negative Urine Urobilinogen 0.2 Ur Leukocyte Esterase Small H Urine RBC 5-10 H Urine WBC 10-20 H Ur Epithelial Cells Few Urine Crystals Negative Urine Bacteria Moderate Urine Casts Negative Urine Mucus Negative Ur Culture Indicated? Yes Urine Glucose Negative COVID-19 Source SARS-CoV-2 (PCR) 11/08/21 11/08/21 06:58 06:58 WBC 21.12 H RBC 5.25 Hgb 13.2 L Hct 40.9 MCV 77.9 L MCH 25.1 L MCHC 32.3 RDW 17.7 H Plt Count 226 MPV 9.9 Immature Gran % Neutrophils % Lymphocytes % Monocytes % Eosinophils % Basophils % Nucleated RBC % Absolute Neutrophils Absolute Lymphocytes Absolute Monocytes Absolute Eosinophils Absolute Basophils VBG pH VBG pCO2 VBG pO2 VBG HCO3 VBG Total CO2 VBG O2 Saturation VBG Base Excess VBG Lactate 2.7 H* Sodium Potassium Chloride Carbon Dioxide Anion Gap BUN Creatinine Estimated GFR/1.73 m2 Glucose Calcium Total Bilirubin AST ALT Alkaline Phosphatase Total Protein Albumin Lipase Urine Color Urine Clarity Urine pH Ur Specific [place] Urine Protein Urine Ketones Urine Blood Urine Nitrite Urine Bilirubin Urine Urobilinogen Ur Leukocyte Esterase Urine RBC Urine WBC Ur Epithelial Cells Urine Crystals Urine Bacteria Urine Casts Urine Mucus Ur Culture Indicated? Urine Glucose COVID-19 Source SARS-CoV-2 (PCR)
[2021-11-08] MEDS: Heparin 5,000 UNITS/ML VIAL 5000 UNITS SC ×2 (16:33→23:56)
[2021-11-08] MEDS: Normal Saline Flush 10 ML SYR IVP ×2 (18:47→23:56)
[2021-11-09] MEDS: VANCOMYCIN/WATER (PEG) 1.25 GM/250 ML BAG IVPB (01:09)
[2021-11-09] MEDS: PIPERACILLIN/TAZO 3.375 GM in Normal Saline 50 ML IVPB ×4 (05:25→23:42)
[2021-11-09 06:45] VITALS: BP 100/62; PULSE 64; RESP 16; TEMP 36.6; O2SAT 96
[2021-11-09 07:10] LABS: Lactate 0.7 mmol/L (0.6-1.4)
[2021-11-09 07:12] LABS: Abs Immature Grans 0.07 10^3/uL (0.0-0.06); Absolute Basophil Count 0.07 10^3/uL (0.0-0.2); Absolute Eosinophil Count 0.44 10^3/uL (0.0-0.7); Absolute Lymphocyte Count 1.93 10^3/uL (1.2-3.4); Basophils % 0.5; Eosinophils % 3.4; HCT 38.8 % (40.0-50.0); HGB 12.1 g/dL (13.5-17.5); Immature Grans % 0.5; Lymphocytes % 14.8; MCH 24.9 pg (27.0-33.0); MCHC 31.2 % (32.0-36.0); MPV 9.9 fL (8.0-11.0); Monocytes % 5.7; Neutrophils % 75.1; Nucleated RBC 0 %; Platelet Count 246 10^3/uL (130-400); RBC 4.85 10^6/uL (4.36-5.78); RDW-SD 52.1 fL; WBC 13.05 10^3/uL (4.4-10.8)
[2021-11-09 07:15] LABS: Absolute Monocyte Count 0.74 10^3/uL (0.1-0.8)
[2021-11-09 07:31] LABS: Anion Gap 7.3 mmol/L (3-11); BUN 11 mg/dL (7-18); C-Reactive Protein 16.63 mg/dL (0.0-0.3); CO2 25.7 mmol/L (21.0-32.0); CREATININE 0.6 mg/dL (0.70-1.30); Chloride 105 mmol/L (98-107); Glucose 138 mg/dL (74-106); Magnesium 2.2 mg/dL (1.8-2.4); Potassium 3.7 mmol/L (3.5-5.1); Sodium 138 mmol/L (136-145)
[2021-11-09 07:56] LABS: Procalcitonin 0.3 ng/mL
[2021-11-09] MEDS: Fluticasone NASAL SPRAY 16 GM BTL NS (08:11)
[2021-11-09] MEDS: Nystatin POWDER 15 GM JAR TP ×3 (08:11→19:50)
[2021-11-09] MEDS: Citalopram 20 MG TAB PO (08:12)
[2021-11-09] MEDS: Aspirin E.C. 81 MG TABEC PO (08:12)
[2021-11-09] MEDS: Tamsulosin 0.4 MG CAPCR PO ×2 (08:12→19:49)
[2021-11-09] MEDS: Omeprazole 20 MG CAPCR PO (08:12)
[2021-11-09] MEDS: Loratidine 10 MG TAB PO (08:12)
[2021-11-09] MEDS: Heparin 5,000 UNITS/ML VIAL 5000 UNITS SC ×3 (08:12→23:41)
[2021-11-09] MEDS: Albuterol/Ipratropium 3 ML UPD VIAL UPD ×4 (08:13→19:50)
--- NOTE | 2021-11-09 08:47 | CMPROGNOTE_ITS ---
- If Service Date Differs Date of service: 11/09/21 Time of Service: 08:47 Care Management Progress Note S/O: Carrington was sitting up in bed watching TV when CM met with him. He was pleasant and cooperative with conversation. He is off supplemental oxygen and denies sob and says he is doing good. He has no questions or concerns at this time, CM will continue to support discharge planning needs. A: 61 year old male admitted to [facility] on 11/07/21 for pneumonia, UTI P: Dimas spears anil return to [facility] when he is medically cleared for discharge. He will follow up with his PCP and community supports and transport via wheelchair van with staff from the facility. CM will continue to support Dimas and assess for discharge needs.
[2021-11-09] MEDS: Insulin Aspart 300 UNITS/3 ML PEN SC ×6 (10:04→22:25)
[2021-11-09 16:51] VITALS: RESP 5
--- NOTE | 2021-11-09 16:58 | W.PM.PROGNOT ---
Date of Service Date of service: 11/09/21 Time of Service: 16:58 Assessment and Plan Assessment and plan (1) Acute UTI: Status: Acute Assessment and plan: growing e coli, awaiting sensitivities. continue zosyn day 2 (2) Aspiration pneumonia: Status: Acute Assessment and plan: Patient vomited prior to presentation. this was most likely the source of his pneumonia On zosyn and vanco. day 2, will downstep to augmentin at discharge will discontinue zosyn. white count normalizing procal and crp elevated, will trend. Qualifiers: Aspiration pneumonia type: unspecified Laterality: right Lung location: lower lobe of lung Qualified Code(s): J69.0 - Pneumonitis due to inhalation of food and vomit (3) Fever: Status: Resolved Qualifiers: Fever type: due to other condition Qualified Code(s): R50.81 - Fever presenting with conditions classified elsewhere (4) CP (cerebral palsy), spastic, quadriplegic: Status: Chronic Assessment and plan: Continue home medication, help with feeding (5) Umbilical hernia: Status: Chronic Assessment and plan: Easily able to push back in. No concern for strangulation Qualifiers: Obstruction and gangrene presence: without obstruction or gangrene Qualified Code(s): K42.9 - Umbilical hernia without obstruction or gangrene (6) DVT prophylaxis: Status: Acute Assessment and plan: Subcu heparin (7) Discharge planning issues: Status: Acute Assessment and plan: anticipate discharge tomorrow if continues to improve. Discussed with dr. ekene Subjective Subjective Patient reports: no new complaints, feels better, tolerating liquids well, tolerating a regular diet and afebrile; denies shortness of breath Exam Const General: cooperative, no acute distress, frail appearing and ill appearing chronically Orientation: alert and awake HENND Head: normocephalic and atraumatic Neck Neck: no lymphadenopathy Cardio Rate: regular rate Rhythm: regular rhythm GI Inspection: abnormal to inspection and other (umbical hernia) Palpation: soft Auscultation: normal bowel sounds Back/Spine/Pelvis Thoracic/Lumbar Spine: kyphosis (severe, ) Objective Last Vital Signs Temp 36.6 C 11/09/21 06:45 Pulse 64 11/09/21 06:45 Resp 16 11/09/21 06:45 BP 100/62 11/09/21 06:45 Pulse Ox 96 11/09/21 06:45 Laboratory Results - last 24 hr 11/09/21 11/09/21 11/09/21 06:53 06:55 06:55 WBC 13.05 H D RBC 4.85 Hgb 12.1 L Hct 38.8 L MCV 80.0 MCH 24.9 L MCHC 31.2 L RDW 18.0 H Plt Count 246 MPV 9.9 Immature Gran % 0.5 Neutrophils % 75.1 Lymphocytes % 14.8 Monocytes % 5.7 Eosinophils % 3.4 Basophils % 0.5 Nucleated RBC % 0 Absolute Neutrophils 9.80 H Absolute Lymphocytes 1.93 Absolute Monocytes 0.74 Absolute Eosinophils 0.44 Absolute Basophils 0.07 VBG Lactate 0.7 Sodium 138 Potassium 3.7 Chloride 105 Carbon Dioxide 25.7 Anion Gap 7.3 BUN 11 Creatinine 0.6 L D Estimated GFR/1.73 m2 >= 60.00 Glucose 138 H Calcium 8.0 L Magnesium 2.2 C-Reactive Protein 16.63 H Procalcitonin 0.3 Vancomycin Trough 11/09/21 11:00 WBC RBC Hgb Hct MCV MCH MCHC RDW Plt Count MPV Immature Gran % Neutrophils % Lymphocytes % Monocytes % Eosinophils % Basophils % Nucleated RBC % Absolute Neutrophils Absolute Lymphocytes Absolute Monocytes Absolute Eosinophils Absolute Basophils VBG Lactate Sodium Potassium Chloride Carbon Dioxide Anion Gap BUN Creatinine Estimated GFR/1.73 m2 Glucose Calcium Magnesium C-Reactive Protein Procalcitonin Vancomycin Trough Cancelled
--- NOTE | 2021-11-09 17:29 | CHAPLAIN ---
Dimas was in bed when I visited. He is from [facility] and receive his care there. According to patient notes, he is a quadriplegic and requires total care. He was pleasant in meeting with me and responding to some questions. I will continue to visit.
[2021-11-09] MEDS: Normal Saline Flush 10 ML SYR IVP (17:42)
[2021-11-09 19:10] VITALS: BP 110/66; PULSE 67; RESP 16; TEMP 36.6; O2SAT 95
[2021-11-09] MEDS: Polyethylene Glycol 3350 17 GM PACKET PO (22:24)
[2021-11-10] MEDS: PIPERACILLIN/TAZO 3.375 GM in Normal Saline 50 ML IVPB (05:57)
[2021-11-10 07:42] VITALS: BP 121/84; PULSE 69; RESP 18; TEMP 37.2; O2SAT 94
[2021-11-10] MEDS: Citalopram 20 MG TAB PO (08:02)
[2021-11-10] MEDS: Heparin 5,000 UNITS/ML VIAL 5000 UNITS SC (08:02)
[2021-11-10] MEDS: Aspirin E.C. 81 MG TABEC PO (08:02)
[2021-11-10] MEDS: Fluticasone NASAL SPRAY 16 GM BTL NS (08:02)
[2021-11-10] MEDS: Loratidine 10 MG TAB PO (08:02)
[2021-11-10] MEDS: Tamsulosin 0.4 MG CAPCR PO (08:02)
[2021-11-10] MEDS: Omeprazole 20 MG CAPCR PO (08:02)
[2021-11-10] MEDS: Nystatin POWDER 15 GM JAR TP (08:02)
[2021-11-10] MEDS: Albuterol/Ipratropium 3 ML UPD VIAL UPD ×2 (08:02→10:50)
--- NOTE | 2021-11-10 10:10 | W.PM.DS.N ---
Date of service: 11/10/21 Time of Service: 10:10 DS: Diagnosis Discharge Diagnosis (1) Acute UTI: Status: Acute Asessment and Plan: bailey senstive ecoli will be treated with augmentin for total of 7 days which he is on for aspiration (2) Aspiration pneumonia: Status: Acute Asessment and Plan: 7 days augmentin respiratory status stable, no oxygen requirements no difficulty tolerating current diet of soft and bite sized solids, mildly thickened fluids, whole pills with mildly thickened fluids. MAINTENANCE CONTROLLER to connect with [facility] re: accessing Level 2 [facility] and coordinating VFSS/MBSS through [facility] (3) Fever: Status: Resolved (4) CP (cerebral palsy), spastic, quadriplegic: Status: Chronic (5) Umbilical hernia: Status: Chronic Discharge Plan Disposition Patient Disposition: HOME Condition: Stable Discharge Details Reason For Visit: Pneumonia, UTI Admit Date/Time: 11/07/21 23:44 Admit Provider: Tamir Fernandez Attending Provider: Tamir Fernandez Primary Care Provider: Starr Llamas Hospital Course Hospital Course: this is a 61 year old male with history of cerebral palsy who presented to the ED with cough and fever which started 2 days after vomiting at home. His work up in the ED was concerning for pneumonia, likely aspiration type. He was started on zosyn and vancomycin and admitted to hospitalist services. he improved and was weaned off oxygen. he was tolerating PO well, speech therapy was able to evaluate him and he was tolerating his diet well, they will continue to follow outpatient. He was also noted to have a pansenstive ecoli UTI. His vancomycin was discontinued and he continued to improve. he was hemodynamically stable with no further fevers. He is safe for discharge to home with no services. he will complete 3 more days of augmentin to complete a 7 day course for both pneumonia and UTI. discharge discussed with DR Valeria Riggs Meds and New Rx's Prescriptions: New amoxicillin-pot clavulanate [Augmentin] 875-125 mg tablet 1 tab PO BID Qty: 7 RF: 0 Continued carbamide peroxide [Debrox] 6.5 % drops 5 drp otic (ear) DAILY PRNRF: 0 [employer] Thick-It Powder 1 pwd PO USEASDIRECTD PRNRF: 0 fluticasone propionate 50 mcg/actuation spray,suspension 2 spray intranasal DAILY RF: 0 Toviaz 4 mg tablet extended release 24 hr 4 mg PO DAILY RF: 0 polyethylene glycol 3350 17 gram/dose powder 17 gm PO HS RF: 0 aspirin [Adult Low Dose Aspirin] 81 mg tablet,delayed release (DR/EC) 81 mg PO DAILY RF: 0 Ocuvite Adult 50 Plus 250-5-1 mg capsule 1 cap PO DAILY RF: 0 cholecalciferol (vitamin D3) 25 mcg (1,000 unit) tablet 25 mcg PO DAILY RF: 0 omeprazole 20 mg capsule,delayed release(DR/EC) 20 mg PO DAILY RF: 0 tamsulosin 0.4 mg capsule 0.4 mg PO BID RF: 0 metformin 500 mg tablet extended release 24 hr 500 mg PO DAILY RF: 0 loratadine 10 mg Tablet 10 mg PO DAILY RF: 0 citalopram 20 mg tablet 30 mg PO DAILY RF: 0 calcium polycarbophil [FiberCon] 625 mg Tablet 1,250 mg PO BID RF: 0 calcium carbonate 500 mg calcium (1,250 mg) Tablet,Chewable 500 mg PO BID RF: 0 nystatin 100,000 unit/gram Powder 0 g topical BID Qty: 0 RF: 0 albuterol sulfate 2.5 mg /3 mL (0.083 %) solution for nebulization 2.5 mg inhalation DIRECTED PRNRF: 0 citalopram 20 mg tablet 20 mg PO DAILY RF: 0 Discharge Instructions Instructions: Urinary Tract Infection in Men (ED) Additional Instructions: complete course of antibiotics as directed even if you feel better drink 6-8 glasses of water daily to stay well hydrated. Stand Alone Forms: Nursing Discharge Form Referrals: Starr Llamas [Primary Care Provider] - 12/03/21 1:00 pm Activity:: Activity as Tolerated Equipment/Supplies:: No Equipment Needed Diet:: As Tolerated Discharge Orders Discharge Orders: Discharge Order (Routine); Ordered 11/10/21 Ordered By: Tish Devine Discharge Data Discharge Date/Time-TO BE ENTERED AT DEPARTURE: 11/10/21 12:22 DS: Summary Time Spent with Patient providing and/or coordinating discharge services: Greater than 30 minutes Status at Discharge Functional status at discharge: wheelchair bound Overall status at discharge: patient is progressing back to baseline Mental Status: mental status grossly normal Speech and Movement: speech and movement normal Mood: congruent mood Affect: normal affect Exam Psych Mental Status: mental status grossly normal Speech and Movement: speech and movement normal Mood: congruent mood Affect: normal affect DS: Data Vitals/I&O Vitals and I&O: Vital Signs Temperature 37.2 C 11/10/21 07:42 Temperature Source Temporal Artery Scan 11/10/21 07:42 Pulse 69 11/10/21 07:42 Pulse Rhythm Regular 11/10/21 03:01 Pulse 89 11/08/21 00:31 Respiratory Rate 18 11/10/21 07:42 Respiratory Effort 11/10/21 03:01 Respiratory Depth Normal 11/10/21 03:01 Respiratory Pattern Normal 11/09/21 16:30 Blood Pressure 121/84 11/10/21 07:42 Blood Pressure Mean 66 11/08/21 00:31 Blood Pressure Position Supine 11/07/21 21:33 Pulse Oximetry 94 11/10/21 07:42 Oxygen Delivery Method Room Air 11/10/21 07:42 Oxygen Flow Rate 0 11/10/21 07:42 Fraction of Inspired Oxygen (FIO2) 21 11/09/21 11:21 Pain Level 0 11/09/21 19:10 Intake & Output 11/09/21 11/09/21 11/10/21 11:59 23:59 11:59 Intake Total 590 / 1180 590 / 1180 290 / 290 Output Total 1275 / 2525 1250 / 2525 725 / 725 Balance -685 / -1345 -660 / -1345 -435 / -435 Intake: IV 100 / 210 110 / 210 50 / 50 Oral 490 / 970 480 / 970 240 / 240 Output: Urine 1275 / 2525 1250 / 2525 725 / 725 Other: Urine Color Yellow Yellow Pale Yellow Urine Appearance Clear Clear Clear Stool Size Moderate Stool Characteristics Soft Brown Voiding Methods Incontinent Indwelling Catheter Data Completed and Pending Labs on day of discharge: Preliminary micro results at discharge 11/07/21 22:05 Blood Culture - Preliminary Blood NO GROWTH 48 HOURS 11/07/21 21:55 Blood Culture - Preliminary Blood NO GROWTH 48 HOURS PFSH All Active Problems (Updated 11/10/21 @ 10:13 by Tish Devine NP) DVT prophylaxis (Acute) GERD (gastroesophageal reflux disease) (Acute) Umbilical hernia (Chronic) Aspiration pneumonia (Acute) Acute UTI (Acute) Aspiration pneumonia (Acute) Pyelonephritis, acute (Acute) Fever (Acute) Allergic reaction caused by a drug (Acute) Nephrolithiasis (Chronic) Bladder outlet obstruction (Acute) Urinary incontinence (Acute) OAB (overactive bladder) (Acute) Chronic constipation (Acute) CP (cerebral palsy), spastic, quadriplegic (Chronic) Medical History Anxiety BPH (benign prostatic hyperplasia) Cholelithiasis without obstruction Colpocephaly Diabetes Diverticular disease Exotropia GERD (gastroesophageal reflux disease) Hip subluxation Intellectual disability Kidney papillary necrosis Left inguinal hernia TAPIA (nonalcoholic steatohepatitis) Obesity Obstructive sleep apnea Optic atrophy Osteoporosis Recurrent UTI Umbilical hernia Surgical History No significant past surgical history Family History Father , PNA No problems noted. Mother , SMOKING No problems noted. Brother , MVA No problems noted. Sister Substance abuse Social History Smoking/Tobacco Use Status: Never Smoking risk assessment performed?: Yes Alcohol Intake: never Drug use: Never Substance use type: does not use Household members: other Housing: assisted living facility current occupation: Disabled Do you feel safe at home: Yes Do you feel safe in your relationship?: Yes Additional Social history: Lives at [facility] since Oct 2019. Guardian Mouna Landis since ~2013.
--- NOTE | 2021-11-10 10:19 | PDOC.CMDIS ---
- If Service Date Differs Date of service: 11/10/21 Time of Service: 10:19 LACE Index Scoring Tool - Questions: Length of Stay (in days): 3 Acuity (Admit via E.D.?): Yes Comorbidities: Diabetes w/o Complication, Connective Tissue Disease E.D. Visits: 2 - Answers: Total Score: 13 Risk of Readmission: High Risk Care Management Discharge Reason for Hospitalization: Fever Discharge Plan: Discharge back to [facility] in [place] via EMS transportation arranged by CM. New RX for oral antibiotics was sent to [facility]. CM discussed the discharge plan with Ijeoma Adam from [facility] and received verbal consent prior to discharge. Ijeoma also understands that EMS transportation will be at the cost of the facility, if costs are incurred. Discharge details were discussed and accepted by Maria Alejandra from [facility], in the absence of the landscape account manager who is on vacation this week. Patient/Family Education Needs: Review discharge instructions, medications, limitations and plan to follow up with community providers. ask me three. Services Needed at Discharge: Transportation (via [facility], arranged by CM. )
[2021-11-10 10:50] VITALS: PULSE 85; RESP 20; O2SAT 96
[2021-11-10 10:55] VITALS: PULSE 89; RESP 20; O2SAT 96
== END 2021-11-10 12:22 | disposition home or self-care (01) | DRG 177 ==
LOC: ER 11-08 00:10 → MS 11-08 00:46
PROVIDERS: Nurse Practitioner Family; Admitting Provider General Practice; Emergency Provider Student in an Organized Health Care Education/Training Program; PCP Nurse Practitioner Family; Visit Provider General Practice
DX: J69.0 Pneumonitis due to inhalation of food and vomit (principal); G80.0 Spastic quadriplegic cerebral palsy; N39.0 Urinary tract infection, site not specified; N32.81 Overactive bladder; R32 Unspecified urinary incontinence; K59.09 Other constipation; N13.9 Obstructive and reflux uropathy, unspecified; N40.1 Benign prostatic hyperplasia with lower urinary tract symptoms; E11.9 Type 2 diabetes mellitus without complications; K21.9 Gastro-esophageal reflux disease without esophagitis; K75.81 Nonalcoholic steatohepatitis (NASH); G47.33 Obstructive sleep apnea (adult) (pediatric); M81.0 Age-related osteoporosis without current pathological fracture; K42.9 Umbilical hernia without obstruction or gangrene; Z20.822 Contact with and (suspected) exposure to COVID-19; B96.20 Unspecified Escherichia coli [E. coli] as the cause of diseases classified elsewhere; R50.81 Fever presenting with conditions classified elsewhere
CPT/HCPCS: 36415; 51701; 51702; 71250; 80048; 80053; 82805; 83690; 84145; 85027; 87040; 87077; 87635; 96361; 96365; 96367; 96375; 99285; 74176; 80202; 81003; 81015; 83605; 83735; 85025; 86140; 87086; 87186; 94640; 99222; 99232; 99233; 99239; J0131; J1644; J2405; J2543; J3490; J7620

== ENCOUNTER 2021-11-16 20:56 | Outpatient (REF) | payer MEDICARE, MEDICAID, SELFPAY ==
[2021-11-16 21:22] LABS: Abs Immature Grans 0.18 10^3/uL (0.0-0.06); Absolute Basophil Count 0.06 10^3/uL (0.0-0.2); Absolute Eosinophil Count 0.32 10^3/uL (0.0-0.7); Absolute Lymphocyte Count 2.33 10^3/uL (1.2-3.4); Absolute Monocyte Count 0.94 10^3/uL (0.1-0.8); Absolute Neutrophil Count 6.13 10^3/uL (1.2-6.7); Basophils % 0.6; Eosinophils % 3.2; HCT 44.3 % (40.0-50.0); Immature Grans % 1.8; Lymphocytes % 23.4; MCH 24.7 pg (27.0-33.0); MCHC 31.6 % (32.0-36.0); MCV 78.3 fL (80-95); MPV 10.5 fL (8.0-11.0); Monocytes % 9.4; Neutrophils % 61.6; Nucleated RBC 0 %; Platelet Count 358 10^3/uL (130-400); RBC 5.66 10^6/uL (4.36-5.78); RDW 18.3 % (11.8-14.1); RDW-SD 50.2 fL; WBC 9.96 10^3/uL (4.4-10.8)
[2021-11-18 10:35] LABS: COVID-19 RT-PCR UVMMC Result Negative (Negative)
== END 2021-11-16 20:57 | disposition home or self-care (01) ==
LOC: NCHCN 20:56
PROVIDERS: PCP Nurse Practitioner Family; Visit Provider Nurse Practitioner Family
DX: R50.9 Fever, unspecified (principal); Z20.822 Contact with and (suspected) exposure to COVID-19; J06.9 Acute upper respiratory infection, unspecified
CPT/HCPCS: U0003; U0005; 85025; 87086